=== PATIENT | female | born 1970 | race Caucasian/White ===

== ENCOUNTER → 2016-12-12 | Outpatient (CLI) | payer BC ==
[~2016-12-12] MED LIST: ACET-749; NIFE10CA20; PRENTAB26
--- NOTE | 2016-12-12 09:06 | DIAGNOSTIC IMAGING REPORT ---
CHEST 2 VIEWS ROUTINE CLINICAL HISTORY: Cutaneous sarcoidosis. COMPARISON STUDY: No previous studies for comparison. FINDINGS: Lung volumes are normal. There is no pneumothorax or pleural effusion. No consolidation is identified. Pulmonary vascularity is normal. Cardiac size is within normal limits. No hilar enlargement is identified. IMPRESSION: 1. No acute cardiopulmonary findings. 2. No radiographic evidence of pulmonary sarcoidosis. Electronically signed by: Nelson Pinto M.D. 12/12/2016 9:05 AM Dictated Date/Time: 12/12/2016 9:03 AM
== END | disposition home or self-care (01) ==
LOC: C.RAD 08:25
PROVIDERS: ATTEND Dermatology
DX: D86.89 Sarcoidosis of other sites (principal)

== ENCOUNTER → 2017-01-25 | Outpatient (CLI) | payer BC ==
--- NOTE | 2017-01-25 13:10 | DIAGNOSTIC IMAGING REPORT ---
ABDOMEN COMPLETE (US) HISTORY: Nonalcoholic steatosis. R74.0 TECHNIQUE: Multiple real time sonographic images of the abdomen were obtained assessing elaine-scale appearance. FINDINGS: PANCREAS: The pancreas is partially obscured by bowel gas. The visualized portions of the pancreas are normal without focal lesion or pancreatic duct dilatation. LIVER: The liver demonstrates increased echogenicity with poor through transmission measuring up to 19.5 cm. There is no intrahepatic bile duct dilation, or contour nodularity. There is no ascites. There are 2 hypoechoic foci within the left hepatic lobe measuring up to 0.8 cm without internal vascularity are nonspecific. GALLBLADDER: The gallbladder is collapsed without cholelithiasis, wall thickening, or pericholecystic fluid. Negative sonographic Campuzano's sign. The common bile duct measures 0.7 cm. RIGHT KIDNEY: The right kidney measures 11.1 x 4.7 x 5.5 cm. The parenchymal echotexture and cortical thickness are normal. No nephrolithiasis or hydronephrosis. LEFT KIDNEY: The left kidney measures 11.7 x 5.1 x 6.1 cm. The parenchymal echotexture and cortical thickness are normal. No nephrolithiasis or hydronephrosis. SPLEEN: The spleen measures 13.4 cm and is normal in echotexture. No focal lesions are identified. VASCULATURE: The aorta and IVC appear unremarkable. Aorta measures up to 2.0 cm proximally, 1.9 cm at its midportion and 1.7 cm distally. IMPRESSION: 1. Fatty infiltration of the liver with two nonspecific hypoechoic foci of the left hepatic lobe measuring up to 0.8 cm. Attention at follow-up recommended. 2. No sonographic evidence of cholelithiasis or acute cholecystitis. 3. Mild splenomegaly. The above report was generated using voice recognition software. It may contain grammatical, syntax or spelling errors. Electronically signed by: Feliberto Hernandez M.D. 01/25/2017 1:08 PM Dictated Date/Time: 01/25/2017 12:57 PM
== END | disposition home or self-care (01) ==
LOC: C.ULTR 11:52
PROVIDERS: ATTEND Internal Medicine Gastroenterology
DX: R74.0 Nonspecific elevation of levels of transaminase and lactic acid dehydrogenase [LDH] (principal)

== ENCOUNTER 2018-09-19 10:22 | Inpatient (IN) ==
[2018-09-19] MEDS ORDERED: SODIUM CHLORIDE 0.9% 1000ML 1,000 ML IV ONE (10:49)
[2018-09-19] MEDS ORDERED: fentaNYL citrate 100 MCG/2 ML VIAL IV STA (10:49)
[2018-09-19] MEDS ORDERED: FAMOTIDINE 20MG/5ML IV PUSH IV STA (10:49)
--- NOTE | 2018-09-19 10:59 | Emergency Department Note ---
History of Present Illness General Chief complaint: Referred by Doctor Stated complaint: GALL BLADDER - SENT FROM [facility] Time Seen by Provider: 09/19/18 10:43 Source: patient Mode of arrival: ambulatory Limitations: no limitations History of Present Illness Location: abdomen Radiation: non-radiation Severity: moderate Pain Consistency: + intermittent Maximum Pain Intensity: 2 Quality: + sharp Relieved By: + none Exacerbated By: + eating Treatments prior to arrival: none This is a 48-year-old female who presents the emergency department today after having a HIDA scan performed in nuclear medicine earlier. Patient states she has had 2 "attacks", and became suspicious that her gallbladder may be the problem. She previously been seeing Dr. viviane parker of GI, however since he left the practice she has had a difficult time getting in with his replacement. States when she called the office last week after she had another subsequent attack, Dr. Diaz called in an order for her to have a HIDA study done. Patient has been n.p.o. since 1030 last night, and went to have the study done this morning. Patient states she began having pain during the study and was given a dose of morphine which made the pain worse. States that she was told by the tech there was no activity on her gallbladder at the 1 hour markus, they waited an additional 30 minutes, and then became concerned and sent her to the emergency room. Patient denies any other recent change in activity or recent illness. Patient states she does take medication for blood pressure, however however has no other long-standing medical issues. Patient denies any recent change in bowel movements, does feel nauseated with the pain however has not had any vomit ing. Denies any fevers or chills, chest pain, or trouble breathing. Home Medications Home Medications Medication Instructions Recorded Confirmed Type cholecalciferol (vitamin D3) 1,000 unit PO DAILY 09/19/18 09/19/18 History levonorgestrel [Mirena] 20 mcg INTRAUTERINE UD 09/19/18 09/19/18 History lisinopril-hydrochlorothiazide 1 tab PO DAILY 09/19/18 09/19/18 History loratadine [Claritin] 10 mg PO DAILY 09/19/18 09/19/18 History multivitamin 1 tab PO DAILY 09/19/18 09/19/18 History wheat dextrin [Benefiber Clear SF 1.5 g PO BID 09/19/18 09/19/18 History (dextrin)] Allergies Allergy/AdvReac Type Severity Reaction Status Date / Time procaine Allergy Unknown Verified 09/19/18 11:22 lidocaine Allergy Unknown Unverified 09/19/18 11:22 Past Med/Surg History Medical History IUD (intrauterine device) in place mirena BRYSON (nonalcoholic steatohepatitis) HTN (hypertension) Seasonal allergies GERD (gastroesophageal reflux disease) Surgical History Previous section History of ear, nose, and throat (ENT) surgery S/P ERCP Family History Grandmother (Maternal) Cholecystitis Mother T2DM (type 2 diabetes mellitus) Ovarian cancer Father Kidney malignancy Social History Preferred Language: Greek Communication Ability: Effective Automation/Controls Manager Required: No Beliefs That Will Affect Care: None marital status: Current Living Situation: Spouse Feels Safe at Home: Yes Safety Concerns: Feels Safe At This Time Smoking Status: Former smoker Hx Alcohol Use: Yes Hx Substance Use: No Review of Systems See HPI for pertinent positives & negatives. and A total of 10 systems reviewed and were otherwise negative Physical Exam Vital Signs Vital Signs - 24 hr 09/21/18 07:10 09/21/18 12:36 09/21/18 12:45 Temperature 36.8 C 36.1 C L Temperature Source Oral Temporal Artery Scan Pulse Rate [Apical] 68 58 L Pulse Rate [Finger] 53 L Pulse Rhythm [Apical] Regular Regular Pulse Rhythm [Finger] Pulse Strength [Finger] Respiratory Rate 16 15 12 Respiratory Effort / Characteristics Non-Labored Spontaneous Non-Labored Spontaneous Respiratory Depth Normal Normal Respiratory Pattern Regular Regular Blood Pressure [Left Arm] 146/86 H 150/90 H 137/90 Blood Pressure Mean [Left Arm] 106 110 105 Blood Pressure Position [Left Arm] Lying Semi-fowlers Semi-fowlers Pulse Oximetry 98 100 99 Oxygen Delivery Method Room Air Oxymask Oxymask Oxygen Flow Rate 10 10 09/21/18 12:55 09/21/18 13:05 09/21/18 13:15 Temperature Temperature Source Pulse Rate [Apical] 50 L 52 L 50 L Pulse Rate [Finger] Pulse Rhythm [Apical] Regular Regular Regular Pulse Rhythm [Finger] Pulse Strength [Finger] Respiratory Rate 12 12 12 Respiratory Effort / Characteristics Non-Labored Spontaneous Non-Labored Spontaneous Non-Labored Spontaneous Respiratory Depth Normal Normal Normal Respiratory Pattern Regular Regular Regular Blood Pressure [Left Arm] 148/84 H 152/94 H 127/90 Blood Pressure Mean [Left Arm] 105 113 102 Blood Pressure Position [Left Arm] Semi-fowlers Semi-fowlers Semi-fowlers Pulse Oximetry 99 97 94 Oxygen Delivery Method Oxymask Nasal Cannula Nasal Cannula Oxygen Flow Rate 10 2 2 09/21/18 13:25 09/21/18 13:35 09/21/18 14:23 Temperature 36.2 C L Temperature Source Temporal Artery Scan Pulse Rate [Apical] 49 L 51 L Pulse Rate [Finger] 61 Pulse Rhythm [Apical] Regular Regular Pulse Rhythm [Finger] Pulse Strength [Finger] Respiratory Rate 13 16 20 Respiratory Effort / Characteristics Non-Labored Spontaneous Non-Labored Spontaneous Respiratory Depth Normal Normal Respiratory Pattern Regular Regular Blood Pressure [Left Arm] 136/78 132/92 144/95 H Blood Pressure Mean [Left Arm] 97 105 111 Blood Pressure Position [Left Arm] Semi-fowlers Semi-fowlers Lying Pulse Oximetry 95 94 96 Oxygen Delivery Method Nasal Cannula Nasal Cannula Nasal Cannula Oxygen Flow Rate 2 2 2 09/21/18 14:53 09/21/18 16:09 09/21/18 17:08 Temperature 36.7 C 36.7 C 36.7 C Temperature Source Oral Oral Oral Pulse Rate [Apical] 51 L Pulse Rate [Finger] 66 50 L Pulse Rhythm [Apical] Pulse Rhythm [Finger] Regular Regular Pulse Strength [Finger] Normal Normal Respiratory Rate 16 18 18 Respiratory Effort / Characteristics Non-Labored Non-Labored Respiratory Depth Normal Normal Respiratory Pattern Regular Regular Blood Pressure [Left Arm] 143/91 H 152/92 H 157/99 H Blood Pressure Mean [Left Arm] 108 112 118 Blood Pressure Position [Left Arm] Lying Lying Lying Pulse Oximetry 96 98 98 Oxygen Delivery Method Nasal Cannula Nasal Cannula Nasal Cannula Oxygen Flow Rate 2 2 2 09/21/18 20:03 09/21/18 20:20 09/21/18 23:01 Temperature 37.0 C 36.9 C Temperature Source Oral Oral Pulse Rate [Apical] Pulse Rate [Finger] 80 78 Pulse Rhythm [Apical] Pulse Rhythm [Finger] Regular Pulse Strength [Finger] Normal Respiratory Rate 20 18 Respiratory Effort / Characteristics Non-Labored Non-Labored Spontaneous Respiratory Depth Normal Normal Respiratory Pattern Regular Regular Blood Pressure [Left Arm] 155/84 H 149/81 H Blood Pressure Mean [Left Arm] 107 103 Blood Pressure Position [Left Arm] Lying Lying Pulse Oximetry 97 98 Oxygen Delivery Method Room Air Room Air Room Air Oxygen Flow Rate GENERAL: alert, well appearing, well nourished, no distress, non-toxic EYE EXAM: normal conjunctiva, PERRL and EOM's grossly intact OROPHARYNX: no exudate, no erythema, lips, buccal mucosa, and tongue normal and mucous membranes are moist NECK: supple, no nuchal rigidity, no adenopathy, non-tender LUNGS: Clear to auscultation. Normal chest wall mechanics, no w/r/r HEART: no murmurs, S1 normal and S2 normal ABDOMEN: abdomen soft, non-tender, normo-active bowel sounds, no masses, no rebound or guarding. BACK: Back is symmetrical on inspection and there is no deformity, no midline tenderness, no CVA tenderness. SKIN: no rashes and no bruising UPPER EXTREMITIES: upper extremities are grossly normal. FROM, nml pulses b/l. LOWER EXTREMITIES: No pitting edema. FROM, nml pulses b/l. NEURO EXAM: Normal sensorium, cranial nerves II-XII [grossly] intact, normal speech, no gross weakness of arms, no gross weakness of legs. Gross sensation intact. Course 1040: The patient was seen and evaluated in room C1A. A complete history and physical was obtained. \\ 1229: I updated the patient. NO pain on exam. I explained test results. 1352: I discussed with Nitza Tirado - General Surgery WILLIAN. 1443: I discussed with Nitza again, she suggests admitting to medicine and GI consult for concern of choledocolithiasis. 1449: I discussed with Julia Proctor [facility] Hospitalist WILLIAN. She will evaluate for further treatment. Administered Medications Lactated Ringer's (Lr) 1,000 mls @ 100 mls/hr IV .Q10H IMANI Stop: 10/19/18 16:19 Last Admin: 09/21/18 17:31 Dose: 100 mls/hr Documented by: [id number] Admin: 09/21/18 17:10 Dose: Not Given Documented by: [id number] Infusion: 09/21/18 09:30 Dose: 100 mls/hr Documented by: [id number] Admin: 09/20/18 22:30 Dose: 100 mls/hr Documented by: [id number] Infusion: 09/20/18 22:21 Dose: 100 mls/hr Documented by: [id number] Admin: 09/20/18 12:21 Dose: 100 mls/hr Documented by: [id number] Infusion: 09/20/18 12:21 Dose: 100 mls/hr Documented by: [id number] Admin: 09/20/18 06:00 Dose: 100 mls/hr Documented by: [id number] Infusion: 09/20/18 06:00 Dose: 100 mls/hr Documented by: [id number] Admin: 09/19/18 21:19 Dose: 100 mls/hr Documented by: [id number] Piperacillin Sod/Tazobactam (Sod 3.375 gm/ Dextrose) 115 mls @ 28.75 mls/hr IV Q8H IMANI; Protocol Stop: 09/22/18 14:01 Last Admin: 09/22/18 01:52 Dose: 28.8 mls/hr Documented by: [id number] Infusion: 09/21/18 21:31 Dose: 0 mls/hr Documented by: [id number] Admin: 09/21/18 17:31 Dose: 28.8 mls/hr Documented by: [id number] Admin: 09/21/18 03:52 Dose: 28.8 mls/hr Documented by: [id number] Infusion: 09/20/18 22:30 Dose: 0 mls/hr Documented by: [id number] Admin: 09/20/18 17:51 Dose: 28.8 mls/hr Documented by: [id number] Infusion: 09/20/18 13:16 Dose: 0 mls/hr Documented by: [id number] Admin: 09/20/18 09:16 Dose: 28.8 mls/hr Documented by: [id number] Infusion: 09/20/18 06:02 Dose: 0 mls/hr Documented by: [id number] Admin: 09/20/18 02:02 Dose: 28.8 mls/hr Documented by: [id number] Miscellaneous (Check Scopolamine Patch Placement) 1 ea N/A QS IMANI Stop: 10/20/18 00:00 Last Admin: 09/21/18 23:35 Dose: 1 ea Documented by: [id number] Admin: 09/21/18 16:28 Dose: 1 ea Documented by: [id number] Admin: 09/21/18 16:28 Dose: 1 ea Documented by: [id number] Admin: 09/20/18 23:15 Dose: 1 ea Documented by: [id number] Admin: 09/20/18 17:04 Dose: 1 ea Documented by: [id number] Admin: 09/20/18 07:24 Dose: 1 ea Documented by: [id number] Admin: 09/19/18 23:46 Dose: 1 ea Documented by: [id number] Psyllium Hydrophilic Mucilloid (Metamucil) 1 pkt PO BID IMANI Stop: 10/21/18 20:59 Last Admin: 09/21/18 20:40 Dose: 1 pkt Documented by: [id number] Vitamin D (Vitamin D3) 1,000 units PO DAILY IMANI Stop: 10/20/18 08:59 Last Admin: 09/21/18 16:27 Dose: 1,000 units Documented by: [id number] Admin: 09/20/18 07:24 Dose: 1,000 units Documented by: [id number] Discontinued Medications Bacitracin (Bacitracin) Confirm Administered Dose 45 appln .ROUTE .STK-MED ONE Stop: 09/21/18 09:51 Last Admin: 09/21/18 12:03 Dose: 45 appln Documented by: [id number] Bupivacaine HCl (Marcaine 0.5% Mpf) Confirm Administered Dose 30 ml .ROUTE .STK- MED ONE Stop: 09/21/18 09:52 Last Admin: 09/21/18 12:03 Dose: 24 ml Documented by: [id number] Famotidine (Pepcid 20mg Iv Push) 20 mg IV ONE STA Stop: 09/19/18 10:50 Last Admin: 09/19/18 11:10 Dose: 20 mg Documented by: [id number] Fentanyl Citrate (Fentanyl Citrate) 100 mcg IV NOW STA Stop: 09/19/18 10:50 Last Admin: 09/19/18 11:09 Dose: 100 mcg Documented by: [id number] Sodium Chloride (Nss 1000ml) 1,000 mls @ 999 mls/hr IV .Q1H1M ONE Stop: 09/19/18 11:49 Last Infusion: 09/19/18 12:11 Dose: 0 mls/hr Documented by: [id number] Admin: 09/19/18 11:09 Dose: 999 mls/hr Documented by: [id number] Piperacillin Sod/Tazobactam (Sod 4.5 gm/ Dextrose) 120 mls @ 200 mls/hr IV TO DAY@1700 ONE; Protocol Stop: 09/19/18 17:35 Last Infusion: 09/19/18 21:26 Dose: 0 mls/hr Documented by: [id number] Admin: 09/19/18 20:16 Dose: 200 mls/hr Documented by: [id number] Ciprofloxacin (Cipro) 400 mg in 200 mls @ 100 mls/hr IV PREOP IMANI Stop: 09/19/18 19:44 Last Infusion: 09/19/18 20:23 Dose: 0 mls/hr Documented by: [id number] Admin: 09/19/18 17:45 Dose: 100 mls/hr Documented by: [id number] Lactated Ringer's (Lr) 1,000 mls @ 15 mls/hr IV .Q24H [facility] Stop: 09/20/18 02:00 Last Admin: 09/19/18 19:33 Dose: Not Given Documented by: [id number] Cefazolin Sodium (Ancef 2000mg) 2,000 mg in 15 mls @ 3.75 mls/min IV PREOP@1000 IMANI; Protocol Stop: 09/21/18 18:00 Last Admin: 09/21/18 23:14 Dose: Not Given Documented by: [id number] Indomethacin (Indocin) Confirm Administered Dose 100 mg DE .STK-MED ONE Stop: 09/19/18 17:20 Last Admin: 09/19/18 17:36 Dose: 100 mg Documented by: [id number] Labetalol HCl (Normodyne) 5 mg IV Q5M PRN PRN Reason: PACU Use-SBP>160 or DBP>100 Stop: 09/19/18 22:06 Last Admin: 09/19/18 18:59 Dose: 5 mg Documented by: [id number] Cosigned by: [id number] Lisinopril (Zestril) 20 mg PO QAM [facility] Stop: 10/20/18 08:59 Last Admin: 09/20/18 07:24 Dose: 20 mg Documented by: [id number] Menthol (Nice) Confirm Administered Dose 24 santy BUCCAL .STK-MED ONE Stop: 09/20/18 15:12 Last Admin: 09/20/18 16:27 Dose: 24 santy Documented by: [id number] Scopolamine (Transderm-Scop) Confirm Administered Dose 1.5 mg .ROUTE .STK-MED ONE Stop: 09/19/18 17:12 Last Admin: 09/19/18 17:13 Dose: 1.5 mg Documented by: [id number] Scopolamine (Transderm-Scop) 1.5 mg TD ONE ONE Stop: 09/19/18 17:23 Last Admin: 09/19/18 19:34 Dose: Not Given Documented by: [id number] Medical Decision Making Differential Diagnosis Differential diagnoses includes but is not limited to gastritis, peptic ulcer disease, GERD, gallbladder disease, pancreatitis, small bowel obstruction, acute coronary syndrome, pericarditis, ischemic bowel, irritable bowel disease, irritable bowel syndrome, appendicitis, diverticulitis, malignancy, hernia, urinary tract infection, torsion, [/ectopic (if female)], perforation, trauma, infectious. Medical Records Attestation: I reviewed the patient's medical records. Home Medications Current Medication List: was personally reviewed by me Laboratory Data Attestation: I reviewed the patient's lab results. Result diagrams: 09/21/18 05:41 09/21/18 05:41 Lab Results 09/19/18 09/19/18 09/19/18 Range/Units 11:05 11:05 11:05 WBC 4.46 L (4.8-10.8) K/uL RBC 4.78 (4.2-5.4) M/uL Hgb 14.7 (12.0-16.0) g/dL Hct 42.2 (37-47) % MCV 88.3 (80-100) fL MCH 30.8 (25-34) pg MCHC 34.8 (32-36) g/dL RDW Std Deviation 40.0 (36.4-46.3) fL RDW Coeff of Kecia 12.5 (11.5-14.5) % Plt Count 211 (130-400) K/uL MPV 9.8 (7.4-10.4) fL Immature Gran % (Auto) 0.4 % Neut % (Auto) 62.2 % Lymph % (Auto) 22.6 % [place] % (Auto) 10.3 % Eos % (Auto) 3.6 % Baso % (Auto) 0.9 % Immature Gran # (Auto) 0.02 (0.00-0.02) K/uL Neut # (Auto) 2.77 (1.4-6.5) K/uL Lymph # (Auto) 1.01 L (1.2-3.4) K/uL [place] # (Auto) 0.46 (0.11-0.59) K/uL Eos # (Auto) 0.16 (0-0.5) K/uL Baso # (Auto) 0.04 (0-0.2) K/uL PT 10.5 (9.0-12.0) Seconds INR 1.0 (0.9-1.1) Sodium 140 (136-145) mmol/L Potassium 3.8 (3.5-5.1) mmol/L Chloride 108 H (98-107) mmol/L Carbon Dioxide 27 (21-32) mmol/L Anion Gap 5.0 (3-11) BUN 15 (7-18) mg/dl Creatinine 0.65 (0.6-1.2) mg/dl Est Cr Clr Drug Dosing 117.6 ml/min Est GFR ( Amer) 123.4 Est GFR (Non-Af Amer) 106.5 BUN/Creatinine Ratio 22.8 H (10-20) Glucose 82 (70-99) mg/dl Calcium 8.5 (8.5-10.1) mg/dl Magnesium 2.3 (1.8-2.4) mg/dl Total Bilirubin 0.5 (0.2-1) mg/dl AST 35 (15-37) U/L ALT 69 (12-78) U/L Alkaline Phosphatase 71 (45-117) U/L Troponin I < 0.015 (0-0.045) ng/ml Total Protein 7.0 (6.4-8.2) gm/dl Albumin 3.4 (3.4-5.0) gm/dl Globulin 3.6 (2.5-4.0) gm/dl Albumin/Globulin Ratio 0.9 (0.9-2) Lipase 159 (73-393) U/L HCG, Qual (Negative) 09/19/18 09/20/18 09/20/18 Range/Units 11:05 06:12 06:12 WBC 5.48 (4.8-10.8) K/uL RBC 4.60 (4.2-5.4) M/uL Hgb 13.9 (12.0-16.0) g/dL Hct 40.5 (37-47) % MCV 88.0 (80-100) fL MCH 30.2 (25-34) pg MCHC 34.3 (32-36) g/dL RDW Std Deviation 39.3 (36.4-46.3) fL RDW Coeff of Kecia 12.3 (11.5-14.5) % Plt Count 215 (130-400) K/uL MPV 10.2 (7.4-10.4) fL Immature Gran % (Auto) 0.4 % Neut % (Auto) 87.2 % Lymph % (Auto) 10.9 % [place] % (Auto) 1.5 % Eos % (Auto) 0.0 % Baso % (Auto) 0.0 % Immature Gran # (Auto) 0.02 (0.00-0.02) K/uL Neut # (Auto) 4.78 (1.4-6.5) K/uL Lymph # (Auto) 0.60 L (1.2-3.4) K/uL [place] # (Auto) 0.08 L (0.11-0.59) K/uL Eos # (Auto) 0.00 (0-0.5) K/uL Baso # (Auto) 0.00 (0-0.2) K/uL PT (9.0-12.0) Seconds INR (0.9-1.1) Sodium 140 (136-145) mmol/L Potassium 4.0 (3.5-5.1) mmol/L Chloride 107 (98-107) mmol/L Carbon Dioxide 26 (21-32) mmol/L Anion Gap 7.0 (3-11) BUN 14 (7-18) mg/dl Creatinine 0.89 (0.6-1.2) mg/dl Est Cr Clr Drug Dosing 85.2 ml/min Est GFR ( Amer) 90.1 Est GFR (Non-Af Amer) 77.7 BUN/Creatinine Ratio 15.3 (10-20) Glucose 138 H (70-99) mg/dl Calcium 8.4 L (8.5-10.1) mg/dl Magnesium (1.8-2.4) mg/dl Total Bilirubin 0.6 (0.2-1) mg/dl AST 26 (15-37) U/L ALT 64 (12-78) U/L Alkaline Phosphatase 63 (45-117) U/L Troponin I (0-0.045) ng/ml Total Protein 6.7 (6.4-8.2) gm/dl Albumin 3.1 L (3.4-5.0) gm/dl Globulin 3.6 (2.5-4.0) gm/dl Albumin/Globulin Ratio 0.9 (0.9-2) Lipase 210 (73-393) U/L HCG, Qual Negative (Negative) 09/21/18 09/21/18 Range/Units 05:41 05:41 WBC 6.10 (4.8-10.8) K/uL RBC 4.29 (4.2-5.4) M/uL Hgb 13.0 (12.0-16.0) g/dL Hct 38.3 (37-47) % MCV 89.3 (80-100) fL MCH 30.3 (25-34) pg MCHC 33.9 (32-36) g/dL RDW Std Deviation 39.8 (36.4-46.3) fL RDW Coeff of Kecia 12.6 (11.5-14.5) % Plt Count 188 (130-400) K/uL MPV 9.9 (7.4-10.4) fL Immature Gran % (Auto) % Neut % (Auto) % Lymph % (Auto) % [place] % (Auto) % Eos % (Auto) % Baso % (Auto) % Immature Gran # (Auto) (0.00-0.02) K/uL Neut # (Auto) (1.4-6.5) K/uL Lymph # (Auto) (1.2-3.4) K/uL [place] # (Auto) (0.11-0.59) K/uL Eos # (Auto) (0-0.5) K/uL Baso # (Auto) (0-0.2) K/uL PT (9.0-12.0) Seconds INR (0.9-1.1) Sodium 142 (136-145) mmol/L Potassium 3.7 (3.5-5.1) mmol/L Chloride 108 H (98-107) mmol/L Carbon Dioxide 29 (21-32) mmol/L Anion Gap 5.0 (3-11) BUN 11 (7-18) mg/dl Creatinine 0.87 (0.6-1.2) mg/dl Est Cr Clr Drug Dosing 87.2 ml/min Est GFR ( Amer) 92.6 Est GFR (Non-Af Amer) 79.9 BUN/Creatinine Ratio 12.8 (10-20) Glucose 106 H (70-99) mg/dl Calcium 8.3 L (8.5-10.1) mg/dl Magnesium (1.8-2.4) mg/dl Total Bilirubin 0.7 (0.2-1) mg/dl AST 29 (15-37) U/L ALT 65 (12-78) U/L Alkaline Phosphatase 58 (45-117) U/L Troponin I (0-0.045) ng/ml Total Protein 6.4 (6.4-8.2) gm/dl Albumin 3.2 L (3.4-5.0) gm/dl Globulin 3.2 (2.5-4.0) gm/dl Albumin/Globulin Ratio 1.0 (0.9-2) Lipase (73-393) U/L HCG, Qual (Negative) Imaging Data Attestation: I personally reviewed and interpreted this imaging study as follows: Radiologist's Impression: US abdomen limited CLINICAL HISTORY: 48 years-old Female presenting with gb stone hx, abn hida. TECHNIQUE: Real-time grayscale and limited color Doppler ultrasound imaging of the abdomen limited to the right upper quadrant was performed. COMPARISON: . FINDINGS: Pancreas: Visualized portions of the pancreatic head and body normal. Prominent pancreatic duct measuring 3-4 mm at the level of the pancreatic neck. Liver: Moderately hyperechogenic parenchyma with partial obscuration of the right hemidiaphragm, likely indicating moderate steatosis. The liver measures 16.6 cm in maximal sagittal dimension. Subcentimeter anechoic lesions likely hepatic cysts or hamartomas. Main portal vein patent with normal directional flow. Biliary: No intrahepatic biliary ductal dilatation. Common bile duct measures up to 10 mm in diameter. Hyperechogenic shadowing focus consistent with choledocholithiasis in the proximal to midportion of the common duct. Gallbladder: Gallstones in the mildly distended gallbladder. Posterior shadowing resulting from the calculi limited by rotation of the posterior wall. Gall bladder wall thickening measures up to 5 mm. Sonographic Campuzano's sign negative. However, the patient has recently received morphine. Right kidney: Normal in appearance without evidence of hydronephrosis. Ascites: None. Other: None. IMPRESSION: 1. Cholelithiasis with findings suspicious for calculus cholecystitis. The negative Campuzano's sign is felt to not be reliable given the recent adminis tration of morphine. Surgical consultation is advised. 2. Choledocholithiasis with extrahepatic biliary ductal dilatation. 3. Pancreatic ductal prominence raises concern for a distal common bile duct calculus at the ampulla of Vater. 4. Hepatic steatosis. Correlate with liver function tests to exclude steatohepatitis as a cause for abdominal pain. Electronically signed by: Chintan Montelongo M.D. 09/19/2018 1:25 PM XR chest 1V portable HISTORY: 48 years-old Female epigastric pain acute atypical chest pain with epigastric abdominal pain COMPARISON: Chest radiographs 12/12/2016 TECHNIQUE: Portable AP view of the chest FINDINGS: There is mild asymmetric right hilar prominence which appears unchanged. Cardiac silhouette is upper limits of normal in size. There is no pneumothorax, pleural effusion, focal airspace consolidation or overt pulmonary edema. Mild right hemidiaphragmatic elevation. The bones of the chest appear grossly intact. IMPRESSION: No acute process. The above report was generated using voice recognition software. It may contain grammatical, syntax or spelling errors. Electronically signed by: Feliberto Hernandez M.D. 09/19/2018 11:05 AM ECG Data Attestation: I personally reviewed and interpreted this ECG as follows: Indication: abdominal pain Rate (beats per minute): 63 Rhythm: normal sinus Findings: no ST depression and no ST elevation Blood Pressure Blood Pressure Findings: Elevated blood pressure Blood Pressure Disposition: elevated BP felt to be situational MDM Narrative Pt here well appearing, afebrile, no n/v, but with epigastric pain and an abnormal outpt HIDA. Pt with HIDA and US GB here suggestive of cholecystitis despite normal labs. Consulted surgery who saw pt at bedside and due to concern for possible choledocholithiasis, suggested medicine admission with GI consult in addition. I discussed the case with medicine and placed MRCP order after this discussion, they will see/evaluate the patient and consult GI. VS stable throughout. I do not suspect ascending cholangitis, bacteremia/sepsis. No evidence of perforation, GI bleed, sbo. Impression & Plan Choledocholithiasis, Acute cholecystitis Discharge Plan Visit Data *Final* Discharge Date/Time: 09/19/18 16:29 Chief Complaint: Referred by Doctor Stated Complaint: GALL BLADDER - SENT FROM [facility] ED Provider: Shelly Doherty Discharge Problem: Choledocholithiasis, Acute cholecystitis Patient Disposition: Admitted As Inpatient Discharge Instructions Interventions: ED Discharge Assessment Last Done: 09/19/18 16:29
--- NOTE | 2018-09-19 11:06 | XRay Report ---
XR chest 1V portable HISTORY: 48 years-old Female epigastric pain acute atypical chest pain with epigastric abdominal pa in COMPARISON: Chest radiographs 12/12/2016 TECHNIQUE: Portable AP view of the chest FINDINGS: There is mild asymmetric right hilar prominence which appears unchanged. Cardiac silhouette is upper limits of normal in size. There is no pneumothorax, pleural effusion, focal airspace consolidation or overt pulmonary edema. Mild right hemidiaphragmatic elevation. The bones of the chest appear grossly intact. IMPRESSION: No acute process. The above report was generated using voice recognition software. It may contain grammatical, syntax o r spelling errors. Electronically signed by: Feliberto Hernandez M.D. 09/19/2018 11:05 AM
[2018-09-19 11:16] LABS: Basophils # (auto) 0.04 K/uL (0-0.2); Basophils % (auto) 0.9 %; Eosinophils # (auto) 0.16 K/uL (0-0.5); Eosinophils % (auto) 3.6 %; Hematocrit (blood only) 42.2 % (37-47); Hemoglobin 14.7 g/dL (12.0-16.0); Immature Granulocytes # (auto) 0.02 K/uL (0.00-0.02); Immature Granulocytes % (auto) 0.4 %; Lymphocytes # (auto) 1.01 K/uL (1.2-3.4); Lymphocytes % (auto) 22.6 %; Mean Corpuscular Hgb Conc 34.8 g/dL (32-36); Mean Corpuscular Volume 88.3 fL (80-100); Mean Platelet Volume 9.8 fL (7.4-10.4); Monocytes # (auto) 0.46 K/uL (0.11-0.59); Monocytes % (auto) 10.3 %; Neutrophils # (auto) 2.77 K/uL (1.4-6.5); Neutrophils % (auto) 62.2 %; Platelet Count 211 K/uL (130-400); RDW Coefficient of Variation 12.5 % (11.5-14.5); Red Blood Count 4.78 M/uL (4.2-5.4); White Blood Count 4.46 K/uL (4.8-10.8)
[2018-09-19 11:30] LABS: Alanine Aminotransferase 69 U/L (12-78); Albumin Level 3.4 gm/dl (3.4-5.0); Aspartate Aminotransferase 35 U/L (15-37); BUN Creatinine Ratio 22.8 (10-20); Blood Urea Nitrogen 15 mg/dl (7-18); Calcium 8.5 mg/dl (8.5-10.1); Carbon Dioxide 27 mmol/L (21-32); Chloride 108 mmol/L (98-107); Creatinine Clr Calc Pharmacy 117.6 ml/min; Est GFR (African American) 123.4; Est GFR (Non-African American) 106.5; Glucose 82 mg/dl (70-99); Magnesium 2.3 mg/dl (1.8-2.4); Potassium 3.8 mmol/L (3.5-5.1); Sodium 140 mmol/L (136-145)
[2018-09-19 11:31] LABS: Prothrombin Time 10.5 Seconds (9.0-12.0)
[2018-09-19 11:35] LABS: Albumin Globulin Ratio 0.9 (0.9-2); Alkaline Phosphatase 71 U/L (45-117); Bilirubin,Total 0.5 mg/dl (0.2-1); Globulin 3.6 gm/dl (2.5-4.0); Troponin I < 0.015 ng/ml (0-0.045)
[2018-09-19 11:40] LABS: Pregnancy Test, Serum Negative (Negative)
--- NOTE | 2018-09-19 13:26 | Ultrasound Report ---
US abdomen limited CLINICAL HISTORY: 48 years-old Female presenting with gb stone hx, abn hida. TECHNIQUE: Real-time grayscale and limited color Doppler ultrasound imaging of the abdomen limited to the right upper quadrant was performed. COMPARISON: . FINDINGS: Pancreas: Visualized portions of the pancreatic head and body normal. Prominent pancreatic duct measu ring 3-4 mm at the level of the pancreatic neck. Liver: Moderately hyperechogenic parenchyma with partial obscuration of the right hemidiaphragm, like ly indicating moderate steatosis. The liver measures 16.6 cm in maximal sagittal dimension. Subcentim eter anechoic lesions likely hepatic cysts or hamartomas. Main portal vein patent with normal directi onal flow. Biliary: No intrahepatic biliary ductal dilatation. Common bile duct measures up to 10 mm in diameter . Hyperechogenic shadowing focus consistent with choledocholithiasis in the proximal to midportion of the common duct. Gallbladder: Gallstones in the mildly distended gallbladder. Posterior shadowing resulting from the c alculi limited by rotation of the posterior wall. Gallbladder wall thickening measures up to 5 mm. So nographic Campuzano's sign negative. However, the patient has recently received morphine. Right kidney: Normal in appearance without evidence of hydronephrosis. Ascites: None. Other: None. IMPRESSION: 1. Cholelithiasis with findings suspicious for calculus cholecystitis. The negative Campuzano's sign is felt to not be reliable given the recent administration of morphine. Surgical consultation is advise d. 2. Choledocholithiasis with extrahepatic biliary ductal dilatation. 3. Pancreatic ductal prominence raises concern for a distal common bile duct calculus at the ampulla of Vater. 4. Hepatic steatosis. Correlate with liver function tests to exclude steatohepatitis as a cause for abdominal pain. Electronically signed by: Chintan Montelongo M.D. 09/19/2018 1:25 PM
--- NOTE | 2018-09-19 14:46 | Surgery Consultation ---
Date of Consultation September 19, 2018 Assessment & Plan (1) Acute calculous cholecystitis: 48 year-old female who was having outpatient HIDA scan today for gallbladder evaluation in the setting of two previous episodes of "gallbladder attacks" with abdominal pain, nausea, vomiting, and bloating. HIDA showed evidence of acute cholecystitis with nonvisualization of the gallbladder after 90 minutes and Morhpine administration. Emergency room work-up included labs which were completely unremarkable including cbc, bmp, LFTs, t. bili, and lipase. Abdominal ultrasound however shows dilated CBD at 10 mm (5 mm previously) with shadowing focus in the mid common bile duct consistent with choledochlithiasis as well as prominence of the pancreatic duct at the pancreatic neck. Abdomen is soft, nondistended, tender in the RUQ on deep palpation. Negative Campuzano's sign but given IV pain medication in ER. Hemodynamically stable, afebrile Plan: Discussed with patient that her two imaging studies and her labs are discordant with one another. There is concern for possible choledocholithiasis on today's ultrasound with dilated CBD at 10 mm (5 mm on previous US in June). Therefore given these findings, would recommend further evaluation of the biliary system with MRCP prior to cholecystectomy. Discussed she may need ERCP prior to cholecystectomy depending on further studies. Would recommend hospitalist admission with GI consult and MRCP for further evaluation Recommend IV abx for cholecystitis IV fluids and pain management as needed Repeat am labs including cbc, bmp, LFTs, and lipase NPO after midnight if diet advanced later this evening If further work-up negative possible cholecystectomy tomorrow with Dr. Potts. I reviewed pt's H/P with pt, Plan, I recommend to do laparosocpic cholecystectomy, possible open, on 10AM 09/21/2018, D/W benefits, risks and alternatives of the surgery, the risks - infection, bleeding, injury CBD, bowel, DVT, , pt understood, she agrees with the surgery, I answered all questions, NPO after MN on 09/20/2018 (2) Choledocholithiasis: Ultrasound showing dilated CBD at 10 mm with shadowing focus Prominence of pancreatic duct concerning for distal CBD stone?? HIDA scan however showed radiotracer uptake in small bowel Plan as above Discussed patient with Dr. Potts who agrees with above History of Present Illness Reason for Consultation: Cholelithiasis, Epigastric/RUQ abdominal pain, abnormal outpatient HIDA scan Requesting Physician: Shelly Doherty MD History of Present Illness Araceli is a very pleasant 48 year-old female who was having outpatient HIDA scan today in which she was told to go to emergency room as the gallbladder was not visualized after 1 hour and after morphine administration consistent with acute cholecystitis. Araceli states goes back to June 14 she had her first attach in which she had epigastric/RUQ abdominal pain with severe nausea and vomiting. States she was unable to eat or drink anything for 1 day during that attack. States she did fine up until last week when she had another attack. Again same symptoms with epigastric pain radiation to her RUQ and straight through her back with nausea and vomiting. She states she has noticed abdominal bloating and intolerance to onions in the past few months. States she never had any issues with her gallbladder prior to June 14 attack. Denies of any fever, chills, sweats, nausea, vomiting, vomiting blood, diarrhea, constipation, blood in stools, melena, acholic stools, generalized itching, jaundice. Has family history of gallbladder problems (Maternal grandmother). Had a section in 2005, no other abdominal surgeries. Her outpatient imaging has included an abdominal ultrasound in June which showed gallstones however no signs of acute cholecystitis and CBD measured 5 mm. HIDA scan today showed nonvisualization of gallbladder at 90 minutes even after morphine administration consistent with acute cholecystitis however there was radiotracer uptake into the small intestine. Abdominal Ultrasound today (09/19/2018) showed gallstones, gallbladder wall thickening at 5 mm , dilated CBD at 10 mm with shadowing focus of the mid common bile duct consistent with choledocholithiasis as well as prominence of the pancreatic duct concerning for distal common bile duct at ampulla of vater. Her labs are completely within normal limits including CBC, t. bili, LFTs, and lipase. Vitals are stable and she is afebrile. Allergies Allergy/AdvReac Type Severity Reaction Status Date / Time procaine Allergy Unknown Verified 09/19/18 11:22 lidocaine Allergy Unknown Unverified 09/19/18 11:22 Home Medications Home Medications Medication Instructions Recorded Confirmed Type cholecalciferol (vitamin D3) 1,000 unit PO DAILY 09/19/18 09/19/18 History levonorgestrel [Mirena] 20 mcg INTRAUTERINE UD 09/19/18 09/19/18 History lisinopril-hydrochlorothiazide 1 tab PO DAILY 09/19/18 09/19/18 History loratadine [Claritin] 10 mg PO DAILY 09/19/18 09/19/18 History multivitamin 1 tab PO DAILY 09/19/18 09/19/18 History wheat dextrin [Benefiber Clear SF 1.5 g PO BID 09/19/18 09/19/18 History (dextrin)] Patient History Medical History IUD (intrauterine device) in place mirena BRYSON (nonalcoholic steatohepatitis) HTN (hypertension) Seasonal allergies GERD (gastroesophageal reflux disease) Surgical History Previous section History of ear, nose, and throat (ENT) surgery Family History Grandmother (Maternal) Cholecystitis Mother T2DM (type 2 diabetes mellitus) Ovarian cancer Father Kidney malignancy Social History Preferred Language: [place] Communication Ability: Effective Form Setter/Driver Required: No Beliefs That Will Affect Care: None marital status: Current Living Situation: Spouse Feels Safe at Home: Yes Safety Concerns: Feels Safe At This Time Smoking Status: Former smoker Hx Alcohol Use: Yes Hx Substance Use: No Review of Systems Constitutional: no fever, no chills and no sweats Respiratory: no cough, no dyspnea and no dyspnea on exertion Cardiovascular: no chest pain and no palpitations Gastrointestinal: + abdominal pain and + bloating; no belching, no nausea, no vomiting, no coffee ground emesis, no hematemesis, no change in stools, no constipation, no diarrhea/loose stools, no blood in stools and no melena Physical Exam Vital Signs (Past 24 Hours): Last Vital Signs Temp 36.8 C 09/19/18 10:36 Pulse 69 09/19/18 14:08 Resp 17 09/19/18 14:08 BP 152/95 H 09/19/18 14:08 Pulse Ox 98 09/19/18 14:08 Constitutional: WD/WN, vitals as above no acute distress and not ill appearing Neck: trachea midline Respiratory: normal respiratory effort, lungs clear to auscultation Cardiovascular: RRR, no murmur, no edema Gastrointestinal (Abdomen): Inspection/Auscultation: abdomen normal to inspection; abdomen not distended Percussion/Palpation: + abdomen tender (epigastric and RUQ on deep palpation, negative Campuzano's sign), + guarding and abdomen soft; abdomen not rigid Skin: no rashes, warm and dry no jaundice Psychiatric: A+Ox3, euthymic affect Results & Data Laboratory Results 09/19/18 09/19/18 09/19/18 Range/Units 11:05 11:05 11:05 WBC (4.8-10.8) K/uL RBC (4.2-5.4) M/uL Hgb (12.0-16.0) g/dL Hct (37-47) % MCV (80-100) fL MCH (25-34) pg MCHC (32-36) g/dL RDW Std Deviation (36.4-46.3) fL RDW Coeff of Kecia (11.5-14.5) % Plt Count (130-400) K/uL MPV (7.4-10.4) fL Immature Gran % (Auto) % Neut % (Auto) % Lymph % (Auto) % [place] % (Auto) % Eos % (Auto) % Baso % (Auto) % Immature Gran # (Auto) (0.00-0.02) K/uL Neut # (Auto) (1.4-6.5) K/uL Lymph # (Auto) (1.2-3.4) K/uL [place] # (Auto) (0.11-0.59) K/uL Eos # (Auto) (0-0.5) K/uL Baso # (Auto) (0-0.2) K/uL PT 10.5 (9.0-12.0) Seconds INR 1.0 (0.9-1.1) Sodium 140 (136-145) mmol/L Potassium 3.8 (3.5-5.1) mmol/L Chloride 108 H (98-107) mmol/L Carbon Dioxide 27 (21-32) mmol/L Anion Gap 5.0 (3-11) BUN 15 (7-18) mg/dl Creatinine 0.65 (0.6-1.2) mg/dl Est Cr Clr Drug Dosing 117.6 ml/min Est GFR ( Amer) 123.4 Est GFR (Non-Af Amer) 106.5 BUN/Creatinine Ratio 22.8 H (10-20) Glucose 82 (70-99) mg/dl Calcium 8.5 (8.5-10.1) mg/dl Magnesium 2.3 (1.8-2.4) mg/dl Total Bilirubin 0.5 (0.2-1) mg/dl AST 35 (15-37) U/L ALT 69 (12-78) U/L Alkaline Phosphatase 71 (45-117) U/L Troponin I < 0.015 (0-0.045) ng/ml Total Protein 7.0 (6.4-8.2) gm/dl Albumin 3.4 (3.4-5.0) gm/dl Globulin 3.6 (2.5-4.0) gm/dl Albumin/Globulin Ratio 0.9 (0.9-2) Lipase 159 (73-393) U/L HCG, Qual Negative (Negative) 09/19/18 Range/Units 11:05 WBC 4.46 L (4.8-10.8) K/uL RBC 4.78 (4.2-5.4) M/uL Hgb 14.7 (12.0-16.0) g/dL Hct 42.2 (37-47) % MCV 88.3 (80-100) fL MCH 30.8 (25-34) pg MCHC 34.8 (32-36) g/dL RDW Std Deviation 40.0 (36.4-46.3) fL RDW Coeff of Kecia 12.5 (11.5-14.5) % Plt Count 211 (130-400) K/uL MPV 9.8 (7.4-10.4) fL Immature Gran % (Auto) 0.4 % Neut % (Auto) 62.2 % Lymph % (Auto) 22.6 % [place] % (Auto) 10.3 % Eos % (Auto) 3.6 % Baso % (Auto) 0.9 % Immature Gran # (Auto) 0.02 (0.00-0.02) K/uL Neut # (Auto) 2.77 (1.4-6.5) K/uL Lymph # (Auto) 1.01 L (1.2-3.4) K/uL [place] # (Auto) 0.46 (0.11-0.59) K/uL Eos # (Auto) 0.16 (0-0.5) K/uL Baso # (Auto) 0.04 (0-0.2) K/uL PT (9.0-12.0) Seconds INR (0.9-1.1) Sodium (136-145) mmol/L Potassium (3.5-5.1) mmol/L Chloride (98-107) mmol/L Carbon Dioxide (21-32) mmol/L Anion Gap (3-11) BUN (7-18) mg/dl Creatinine (0.6-1.2) mg/dl Est Cr Clr Drug Dosing ml/min Est GFR ( Amer) Est GFR (Non-Af Amer) BUN/Creatinine Ratio (10-20) Glucose (70-99) mg/dl Calcium (8.5-10.1) mg/dl Magnesium (1.8-2.4) mg/dl Total Bilirubin (0.2-1) mg/dl AST (15-37) U/L ALT (12-78) U/L Alkaline Phosphatase (45-117) U/L Troponin I (0-0.045) ng/ml Total Protein (6.4-8.2) gm/dl Albumin (3.4-5.0) gm/dl Globulin (2.5-4.0) gm/dl Albumin/Globulin Ratio (0.9-2) Lipase (73-393) U/L HCG, Qual (Negative) Diagnostic Findings NM hepatobiliary wo pharm CLINICAL HISTORY: 48 years-old Female presenting with GALLSTONES, epigastric pain. TECHNIQUE: Immediately following the intravenous administration of 5.5 mCi Tc- 99m Choletec, dynamic anterior abdominal imaging was performed. 2 mg of IV morphine was administered at 60 minutes due to nondistention of the gallbladder with a patent common duct. COMPARISON: Ultrasound from 06/20/2018. FINDINGS: Uniform hepatic tracer accumulation is shown. Prompt intrahepatic biliary excretion is seen with visualization of the small bowel. Note made of reflux of radiotracer into the gastric lumen. Delayed visualization of the gallbladder requiring administration of morphine. The gallbladder was not confidently visual ized despite 30 minutes of imaging. Expected radiotracer activity within small bowel indicates an unobstructed common duct. IMPRESSION: 1. Nonvisualization of the gallbladder after 90 minutes despite morphine administration. Findings highly suspicious for acute cholecystitis. US abdomen limited CLINICAL HISTORY: 48 years-old Female presenting with gb stone hx, abn hida. TECHNIQUE: Real-time grayscale and limited color Doppler ultrasound imaging of the abdomen limited to the right upper quadrant was performed. COMPARISON: . FINDINGS: Pancreas: Visualized portions of the pancreatic head and body normal. Prominent pancreatic duct measuring 3-4 mm at the level of the pancreatic neck. Liver: Moderately hyperechogenic parenchyma with partial obscuration of the right hemidiaphragm, likely indicating moderate steatosis. The liver measures 16.6 cm in maximal sagittal dimension. Subcentimeter anechoic lesions likely hepatic cysts or hamartomas. Main portal vein patent with normal directional flow. Biliary: No intrahepatic biliary ductal dilatation. Common bile duct measures up to 10 mm in diameter. Hyperechogenic shadowing focus consistent with choledocholithiasis in the proximal to midportion of the common duct. Gallbladder: Gallstones in the mildly distended gallbladder. Posterior shadowing resulting from the calculi limited by rotation of the posterior wall. Gallbladder wall thickening measures up to 5 mm. Sonographic Campuzano's sign negative. However, the patient has recently received morphine. Right kidney: Normal in appearance without evidence of hydronephrosis. Ascites: None. Other: None. IMPRESSION: 1. Cholelithiasis with findings suspicious for calculus cholecystitis. The negative Campuzano's sign is felt to not be reliable given the recent administration of morphine. Surgical consultation is advised. 2. Choledocholithiasis with extrahepatic biliary ductal dilatation. 3. Pancreatic ductal prominence raises concern for a distal common bile duct calculus at the ampulla of Vater. 4. Hepatic steatosis. Correlate with liver function tests to exclude steatohepatitis as a cause for abdominal pain.
--- NOTE | 2018-09-19 15:40 | History & Physical Report ---
Date of Service September 19, 2018 Assessment & Plan (1) Acute calculous cholecystitis: This is a 48-year-old female who has significant past medical history of HTN, Watt who presents to [facility] ED after having a positive HIDA scan done as outpatient. HIDA Scan done 09/19/18 findings concerning for calculus cholecystitis with possible choledocholithiasis and extra hepatic ductal dilatation, pancreatic ductal prominence raises concern for distal CBD calculus at ampulla of vater. In ED patient was afebrile and hemo dynamically stable. LFTS, Lipase, CBC WNL. Gen Surgery consulted, Dr. Potts recommending MRCP with possible ERCP if choledocholithiasis present. If MRCP negative likely cholecystectomy tomorrow -admit to med/surg -LR at 100cc/hr -NPO with strict NPO at midnight -MRCP -Consult [facility], patient follows with Dr. Louis -IV Zosyn for acute cholecystitis -IV toradol 30mg IV q6hr prn mod pain; Morphine 4mg q4hr prn severe pain -repeat CBC, CMP, Lipase in a.m. -repeat ECG given poor quality in ED (2) Choledocholithiasis: -plan as above (3) HTN (hypertension): -blood pressure controlled in outpatient setting with lisinopril/hctz -will hold lisinopril/HCTZ while inpatient and place on lisinopril only with parameters -follow closely (4) WATT (nonalcoholic steatohepatitis): -low fat diet along with lifestyle modifications encouraged (5) GERD (gastroesophageal reflux disease): -PRN famotidine (6) WILFRED (obstructive sleep apnea): -mild, followed outpatient sleep medicine -not treated with cpap/bipap (7) IUD (intrauterine device) in place: (8) DVT prophylaxis: -SCDS, patient higher risk given morbid obesity with IUD in place -Avoid chemo prophylaxis given likely upcoming surgical procedure Disposition: D/C to home when able Follow up: PCP Dr. Mayen upon discharge Patient was seen in collaboration with Dr. Oneil, please see addendum Starting 09/20/18 patient will be followed by Dr. Veronica History of Present Illness Chief Complaint: Positive HIDA scan as outpatient Primary Care Provider: Jhoan Mayen MD This is a 48-year-old female who has significant past medical history of HTN, Watt, GERD, mild WILFRED who presents to [facility] ED after having a positive HIDA scan done as outpatient. Patient symptoms initially began in June after having fried rice. Developed stabbing epigastric pain that radiated to back with associated nausea and emesis. Was alleviated with rest and time approximately 12 hours. "Certain foods always bother me and I usually take ranitidine prior to eating them, onion into particular." She follows with [facility] and had outpatient ultrasound done in June that was significant for multiple gallstones without evidence of cholecystitis. Approximately 1 week ago she had a second attack after eating jambalaya. Symptoms similar, severe epigastric pain radiating to back; however, this lasted approximately 24 hours before remitting. Unable to eat or drink anything x 1 day. She was then ordered a HIDA scan. HIDA scan today revealed nonvisualization of gallbladder at 90 minutes even after morphine administration consistent with acute cholecystitis. She was then referred to ED. Currently abdominal pain is minimal. Pain was mimicked by HIDA scan, but not as severe. She denies any fever, chills, sweats, lightheadedness, dizziness, chest pain, shortness of breath, nausea, vomiting, diarrhea, change in bowel or bladder habits, melena, hematochezia. Back in June she was having difficulty with constipation prior to her, "attacks." +FH maternal grandmother of gall bladder problems. Prior abdominal surgeries include . Allergies Allergy/AdvReac Type Severity Reaction Status Date / Time procaine Allergy Unknown Verified 09/19/18 11:22 lidocaine Allergy Unknown Unverified 09/19/18 11:22 Home Medications Home Medications Medication Instructions Recorded Confirmed Type cholecalciferol (vitamin D3) 1,000 unit PO DAILY 09/19/18 09/19/18 History levonorgestrel [Mirena] 20 mcg INTRAUTERINE UD 09/19/18 09/19/18 History lisinopril-hydrochlorothiazide 1 tab PO DAILY 09/19/18 09/19/18 History loratadine [Claritin] 10 mg PO DAILY 09/19/18 09/19/18 History multivitamin 1 tab PO DAILY 09/19/18 09/19/18 History wheat dextrin [Benefiber Clear SF 1.5 g PO BID 09/19/18 09/19/18 History (dextrin)] Past Med/Surg History Medical History IUD (intrauterine device) in place mirena WATT (nonalcoholic steatohepatitis) HTN (hypertension) Seasonal allergies GERD (gastroesophageal reflux disease) Surgical History Previous section Social History Preferred Language: Arabic Communication Ability: Effective Fabric Worker Required: No Beliefs That Will Affect Care: None marital status: Current Living Situation: Spouse Feels Safe at Home: Yes Safety Concerns: Feels Safe At This Time Smoking Status: Former smoker Hx Alcohol Use: Yes Hx Substance Use: No Review of Systems All systems reviewed & are unremarkable except as noted in HPI & below Physical Exam Vital Signs (Past 24 Hours): Last Vital Signs Temp 36.8 C 09/19/18 10:36 Pulse 69 09/19/18 15:19 Resp 20 09/19/18 15:19 BP 131/96 09/19/18 15:19 Pulse Ox 98 09/19/18 15:19 Physical Exam: Gen: WD/WN, F, NAD, sitting up in bed, pleasant, conversing easily Head: Normocephalic, Atraumatic Eyes: Sclera normal, no conjunctival injection, PERRLA, EOMI ENT: Gross hearing intact, normal pharynx, mucous membranes moist Neck: supple, no adenopathy, No JVD, no bruit, Resp: Clear to auscultation b/l, no wheeze, rales, rhonchi. Normal insp/exp effort, no accessory muscle use CV: Regular rate, regular rhythm, no murmur, rub, gallop, or ectopy Abd: +obese abdomen, +BS x 4, soft, nontender, no rebound, guarding Musculoskeletal: moves extremities active rom x 4, strength intact, good industrial maintenance electrician strength Extremities: No edema bilaterally Skin: warm, moist, no rash, negative turgor, cap refill < 2sec Neuro: Alert and oriented x 3, speech normal, good mood/affect, cran nerve 2-12 intact grossly : deferred Results & Data Laboratory Results Short CBC 09/19/18 Range/Units 11:05 WBC 4.46 L (4.8-10.8) K/uL Hgb 14.7 (12.0-16.0) g/dL Hct 42.2 (37-47) % Plt Count 211 (130-400) K/uL BMP 09/19/18 11:05 Sodium 140 Potassium 3.8 Chloride 108 H Carbon Dioxide 27 BUN 15 Creatinine 0.65 Glucose 82 Calcium 8.5 Cardiac Enzymes 09/19/18 Range/Units 11:05 Troponin I < 0.015 (0-0.045) ng/ml Liver Function 09/19/18 Range/Units 11:05 Total Bilirubin 0.5 (0.2-1) mg/dl AST 35 (15-37) U/L ALT 69 (12-78) U/L Alkaline Phosphatase 71 (45-117) U/L Albumin 3.4 (3.4-5.0) gm/dl Diagnostic Findings Abd U/S: IMPRESSION: 1. Cholelithiasis with findings suspicious for calculus cholecystitis. The negative Campuzano's sign is felt to not be reliable given the recent administration of morphine. Surgical consultation is advised. 2. Choledocholithiasis with extrahepatic biliary ductal dilatation. 3. Pancreatic ductal prominence raises concern for a distal common bile duct calculus at the ampulla of Vater. 4. Hepatic steatosis. Correlate with liver function tests to exclude steatohepatitis as a cause for abdominal pain. CXR: FINDINGS: There is mild asymmetric right hilar prominence which appears unchanged. Cardiac silhouette is upper limits of normal in size. There is no pneumothorax, pleural effusion, focal airspace consolidation or overt pulmonary edema. Mild right h emidiaphragmatic elevation. The bones of the chest appear grossly intact. IMPRESSION: No acute process. HIDA: IMPRESSION: 1. Cholelithiasis with findings suspicious for calculus cholecystitis. The negative Campuzano's sign is felt to not be reliable given the recent administration of morphine. Surgical consultation is advised. 2. Choledocholithiasis with extrahepatic biliary ductal dilatation. 3. Pancreatic ductal prominence raises concern for a distal common bile duct calculus at the ampulla of Vater. 4. Hepatic steatosis. Correlate with liver function tests to exclude steatohepatitis as a cause for abdominal pain. ECG Rate (beats per minute): 63 Rhythm: normal sinus Comparison ECG Date: from (2012, poor quality ecg) Code Status & VTE Plan Code Status Full Code VTE Prophylaxis Plan VTE Prophylaxis will be ordered: Yes Supervising Physician Co-Signing Physician Notes Patient is a 48-year-old female with history of WATT and other problems presents with history of positive HIDA scan for further evaluation and management. Patient complains of ongoing epigastric and right upper quadrant abdominal pain radiating to back, associated with nausea and vomiting. Please review HPI for complete details of presentation and patient's history. Abdominal ultrasound suggestive of possible calculus cholecystitis, choledocholithiasis with extrahepatic biliary duct dilatation, hepatic steatosis, and findings suggestive of distal CBD calculus at the ampulla of Vater. Patient was evaluated by surgery while in ED who suggested to consult gastroenterology for MRCP and possible ERCP for choledocholithiasis. On exam patient is obese, no distress, lungs are clear to auscultation, S1-S2, no murmur, abdomen is soft, right upper quadrant and epigastric tenderness, bowel sounds are present,AAOX3, no focal deficits, no pedal edema. Patient is admitted for management of acute calculus cholecystitis and choledocholithiasis. LFTs are within normal range. Plan to start on IV antibiotics, IV fluids, pain control, n.p.o. after midnight, gastroenterology in surgery are consulted. I personally reviewed the record. Patient is interviewed and examined at bedside. Patient's care is coordinated with Julia Proctor PA-C. Please refer to the documentation above for details of patient's presentation and for discussion of other issues. (1) GERD (gastroesophageal reflux disease) Esophagitis presence: esophagitis presence not specified Qualified Code(s): K21.9 - Gastro-esophageal reflux disease without esophagitis (2) HTN (hypertension) Hypertension type: essential hypertension Qualified Code(s): I10 - Essential (primary) hypertension
[2018-09-19] MEDS ORDERED: ACETAMINOPHEN 325 MG TAB PO PRN (16:20)
[2018-09-19] MEDS ORDERED: ALUMINUM/MAGNESIUM SUSP 30 ML UDC PO PRN (16:20)
[2018-09-19] MEDS ORDERED: MAGNESIUM HYDROXIDE SUSP 30 ML UDC PO PRN (16:20)
[2018-09-19] MEDS ORDERED: POLYETHYLENE (MIRALAX) 17 GM PACK PO PRN (16:20)
[2018-09-19] MEDS ORDERED: PIPERACILL/TAZOBAC CONSULT ACTIVE PRN (16:20)
[2018-09-19] MEDS ORDERED: MoRPHine SULFATE 4 MG/ML 1 ML CARP\\VIAL IV PRN (16:20)
[2018-09-19] MEDS ORDERED: KETOROLAC 30 MG/ML VIAL IV PRN (16:20)
[2018-09-19] MEDS ORDERED: ONDANSETRON INJ 2 MG/ML 2 ML VIAL IV PRN ×2 (16:20→17:05)
[2018-09-19] MEDS ORDERED: PIPERACILLIN/TAZOBACTAM 4.5 GM in DEXTROSE 5% 100 ML IV ONE (17:00)
[2018-09-19] MEDS ORDERED: PROPOFOL IV EMULSION 10 MG/ML 20 ML VIAL IV ONE (17:03)
[2018-09-19] MEDS ORDERED: fentaNYL citrate 100 MCG/2 ML VIAL ONE (17:03)
[2018-09-19] MEDS ORDERED: MIDAZOLAM HCL 1 MG/ML 2ML VIAL ONE (17:03)
[2018-09-19] MEDS ORDERED: fentaNYL citrate 100 MCG/2 ML VIAL IV PRN (17:05)
[2018-09-19] MEDS ORDERED: MEPERIDINE HCL 25 MG/ML CARP IV PRN (17:05)
[2018-09-19] MEDS ORDERED: LABETALOL HCL IV 5 MG/ML 20ML IV PRN (17:05)
[2018-09-19] MEDS ORDERED: ATROPINE SULFATE 0.1 MG/ML 10ML SYR IV PRN (17:05)
[2018-09-19] MEDS ORDERED: INDOMETHACIN 50 MG SUPP PR PRN (17:05)
[2018-09-19] MEDS ORDERED: PHENYLEPHRINE 100MCG/ML 5ML SYR IV PRN (17:05)
[2018-09-19] MEDS ORDERED: ePHEDrine sulfate 50 MG/ML AMP IV PRN (17:05)
--- NOTE | 2018-09-19 17:10 | Anesthesiology Consultation ---
Date of Service September 19, 2018 Assessment & Plan (1) Encounter for pre-operative examination: Chart Review Chart Review: Acceptable Risk for Surgery and Patient NOT seen in Pre Admission Testing Consults Requested none ASA ASA2 Proposed Anesthesia Anesthesia Type: General Risk / Benefits Reviewed With: PT / POA / Parent / Guardian, Accepts Plan and In formed Consent Obtained NPO Date Last Intake of Fluids: 09/18/18 Time Last Intake of Fluids: 23:59 Date Last Intake of Solids: 09/18/18 Time Last Intake of Solids: 23:59 History Surgery Operation Date: 09/19/18 13:05 Proposed Procedures p Endoscopic Retrograde Cholangiopancreato Roly Louis Height/Weight Height: 5 ft 2 in Weight: 95.753 kg Allergies Allergy/AdvReac Type Severity Reaction Status Date / Time procaine Allergy Unknown Verified 09/19/18 11:22 lidocaine Allergy Unknown Unverified 09/19/18 11:22 Medications Home Medications Medication Instructions Recorded Confirmed Last Taken cholecalciferol (vitamin D3) 1,000 unit PO DAILY 09/19/18 09/19/18 09/18/18 levonorgestrel [Mirena] 20 mcg INTRAUTERINE UD 09/19/18 09/19/18 09/19/18 lisinopril-hydrochlorothiazide 1 tab PO DAILY 09/19/18 09/19/18 09/18/18 loratadine [Claritin] 10 mg PO DAILY 09/19/18 09/19/18 09/18/18 multivitamin 1 tab PO DAILY 09/19/18 09/19/18 09/18/18 wheat dextrin [Benefiber Clear SF 1.5 g PO BID 09/19/18 09/19/18 Unknown (dextrin)] Past Medical History Medical History IUD (intrauterine device) in place mirena BRYSON (nonalcoholic steatohepatitis) HTN (hypertension) Seasonal allergies GERD (gastroesophageal reflux disease) Past Family History Family History Grandmother (Maternal) Cholecystitis Mother T2DM (type 2 diabetes mellitus) Ovarian cancer Father Kidney malignancy Past Surgical History Surgical History Previous section History of ear, nose, and throat (ENT) surgery Social History Smoking Status: Former smoker tobacco type: cigarettes Smoking cigarettes per day: 1 PPD x 15 years, Quit 2009 Hx Alcohol Use: Yes Alcohol type: wine alcohol intake frequency: holidays/special occasions only Hx Substance Use: No substance use type: does not use Review of Systems no chest pain or sob Physical Exam Vital Signs Last Vital Signs Temp 36.8 C 09/19/18 17:11 Pulse 66 09/19/18 17:11 Resp 18 09/19/18 17:11 BP 150/109 H 09/19/18 17:11 Pulse Ox 97 09/19/18 17:11 Constitutional + obese ENMT Mouth: + dental caries Thyromental Distance: > or= 3.5 Finger Breadths Mallampati Class: II Neck normal visual inspection Respiratory normal respiratory effort Cardiovascular Rate/Rhythm: regular rate and regular rhythm Musculoskeletal Spine: lumbar spine normal to inspection; normal cervical ROM and no pain with cervical ROM Neurologic moves all extremities Psychiatric Orientation: alert and oriented x 3 Testing Laboratory Results 09/19/18 11:05 09/19/18 11:05 PT 10.5 Seconds (9.0-12.0) 09/19/18 11:05 INR 1.0 (0.9-1.1) 09/19/18 11:05 hcg negative
[2018-09-19] MEDS ORDERED: SCOPOLAMINE 1.5 MG TDSY ONE (17:11)
[2018-09-19] MEDS ORDERED: LACTATED RINGER'S 1,000 ML IV SCH (17:15)
[2018-09-19] MEDS ORDERED: INDOMETHACIN 50 MG SUPP PR ONE (17:19)
[2018-09-19] MEDS ORDERED: SCOPOLAMINE 1.5 MG TDSY TD ONE (17:22)
--- NOTE | 2018-09-19 17:22 | History & Physical Report ---
Date of Service September 19, 2018 History of Present Illness Chief Complaint: CBD stones Primary Care Provider: Jhoan Mayen MD For ERCP Allergies Allergy/AdvReac Type Severity Reaction Status Date / Time procaine Allergy Unknown Verified 09/19/18 11:22 lidocaine Allergy Unknown Unverified 09/19/18 11:22 Home Medications Home Medications Medication Instructions Recorded Confirmed Type cholecalciferol (vitamin D3) 1,000 unit PO DAILY 09/19/18 09/19/18 History levonorgestrel [Mirena] 20 mcg INTRAUTERINE UD 09/19/18 09/19/18 History lisinopril-hydrochlorothiazide 1 tab PO DAILY 09/19/18 09/19/18 History loratadine [Claritin] 10 mg PO DAILY 09/19/18 09/19/18 History multivitamin 1 tab PO DAILY 09/19/18 09/19/18 History wheat dextrin [Benefiber Clear SF 1.5 g PO BID 09/19/18 09/19/18 History (dextrin)] Past Med/Surg History Medical History IUD (intrauterine device) in place mirena BRYSON (nonalcoholic steatohepatitis) HTN (hypertension) Seasonal allergies GERD (gastroesophageal reflux disease) Surgical History Previous section History of ear, nose, and throat (ENT) surgery Family History Grandmother (Maternal) Cholecystitis Mother T2DM (type 2 diabetes mellitus) Ovarian cancer Father Kidney malignancy Social History Preferred Language: Bulgarian Communication Ability: Effective Boat 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 Beliefs That Will Affect Care: None marital status: Current Living Situation: Spouse Feels Safe at Home: Yes Safety Concerns: Feels Safe At This Time Smoking Status: Former smoker Hx Alcohol Use: Yes Hx Substance Use: No Physical Exam Vital Signs (Past 24 Hours): Last Vital Signs Temp 36.8 C 09/19/18 17:11 Pulse 66 09/19/18 17:11 Resp 18 09/19/18 17:11 BP 150/109 H 09/19/18 17:11 Pulse Ox 97 09/19/18 17:11 Constitutional: + obese Respiratory: normal respiratory effort Cardiovascular: Rate/Rhythm: regular rate and regular rhythm Gastrointestinal (Abdomen): Percussion/Palpation: abdomen soft Code Status & VTE Plan VTE Prophylaxis Plan VTE Prophylaxis will be ordered: Yes
[2018-09-19] MEDS ORDERED: ONDANSETRON INJ 2 MG/ML 2 ML VIAL ONE (17:34)
[2018-09-19] MEDS ORDERED: DEXAMETHASONE SOD INJ 4 MG/ML VIAL ONE (17:34)
[2018-09-19] MEDS ORDERED: CIPROFLOXACIN 400 MG/200 ML BAG IV SCH (17:45)
--- NOTE | 2018-09-19 17:57 | GI REPORT ---
Patient Name: Araceli Su Procedure Date: 09/19/2018 5:30 PM Date of : 1970 Admit Type: Inpatient Age: 48 Gender: Female Attending MD: Al Louis MD Procedure: ERCP Providers: Al Louis MD Referring MD: Referred Self Indications: Evaluation and possible treatment of bile duct stone(s) Medicines: General Anesthesia Complications: No immediate complications. Estimated Blood Loss: Estimated blood loss was minimal. Procedure: Pre-Anesthesia Assessment: - Prior to the procedure, a History and Physical was performed, and patient medications, allergies and sensitivities were reviewed. The patient's tolerance of previous anesthesia was reviewed. - The risks and benefits of the procedure and the sedation options and risks were discussed with the patient. All questions were answered and informed consent was obtained. After obtaining informed consent, the scope was passed under direct vision. Throughout the procedure, the patient's blood pressure, pulse, and oxygen saturations were monitored continuously. The Scope was introduced through the mouth, and advanced to the duodenum and used to inject contrast into the bile duct. The ERCP was accomplished without difficulty. The patient tolerated the procedure well. Findings: The bile duct was deeply cannulated with the short-nosed traction sphincterotome. Contrast was injected. I personally interpreted the bile duct images. There was brisk flow of contrast through the ducts. Contrast extended to the main bile duct. Opacification of the main bile duct was seen. The maximum diameter of the ducts was 9 mm. A 5 mm biliary sphincterotomy was made with a short nose sphincterotome using ERBE electrocautery. The sphincterotomy oozed blood. To discover objects, the biliary tree was swept with an 8.5 mm balloon. Nothing was found. Impression: - A biliary sphincterotomy was performed. - The biliary tree was swept and nothing was found. Recommendation: - [facility]. Al Louis M.D. Al Louis MD 09/19/2018 5:56:47 PM This report has been signed electronically. Note Initiated On: 09/19/2018 5:30 PM Number of Addenda: 0 I attest to the content of the Intraoperative Record and orders documented therein, exceptions below {[id number]}
--- NOTE | 2018-09-19 18:02 | Fluoroscopy Report ---
FL ERCP biliary ductal CLINICAL HISTORY: ERCP COMPARISON STUDY: Ultrasound 09/19/2018 FLUOROSCOPY TIME: 2 minutes NUMBER OF FLUOROSCOPIC IMAGES: 3 FINDINGS: Limited visibility of the common bile duct based on the lateral projection. Resolution is i n adequate to confirm or exclude choledocholithiasis. IMPRESSION: Limited study confined to the lateral projection. No evidence for diagnostic caliber imag es. The above report was generated using voice recognition software. It may contain grammatical, syntax or spelling errors. Electronically signed by: Martin Bass M.D. 09/19/2018 6:01 PM
--- NOTE | 2018-09-19 18:36 | Anesthesiology Progress Note ---
Date of Service September 19, 2018 Anesthesia Post Procedure Vital Signs Vital Signs: Temp Pulse Pulse Pulse Resp BP BP 09/19/18 18:30 88 15 119/93 09/19/18 18:20 85 20 159/89 H 09/19/18 18:11 36.3 C L 94 H 20 159/83 H 09/19/18 17:11 36.8 C 66 18 09/19/18 16:23 36.7 C 66 18 09/19/18 16:20 36.7 C 66 18 09/19/18 15:19 69 20 09/19/18 14:08 69 17 09/19/18 12:09 62 17 09/19/18 10:36 36.8 C 72 18 145/97 H BP Pulse Ox 09/19/18 18:30 99 09/19/18 18:20 99 09/19/18 18:11 97 09/19/18 17:11 150/109 H 97 09/19/18 16:23 154/99 H 96 09/19/18 16:20 154/99 H 96 09/19/18 15:19 131/96 98 09/19/18 14:08 152/95 H 98 09/19/18 12:09 129/84 96 09/19/18 10:36 98 Notes Mental Status: alert / awake / arousable Patient Amnestic to Procedure: Yes Nausea / Vomiting: adequately controlled Pain: adequately controlled Airway Patency, RR, SpO2: stable & adequate BP & HR: stable & adequate Hydration State: stable & adequate Anesthetic Complications: no major complications apparent and Pt Satisfied with anesthetic care
--- NOTE | 2018-09-19 19:15 | Consultation Report ---
DATE OF CONSULTATION: 09/19/2018 REASON FOR EVALUATION: Acute cholecystitis and common bile duct stone. HISTORY OF PRESENT ILLNESS: The patient is a 48-year-old who underwent an ultrasound in June, which showed gallstones. Since then, she has had a couple of episodes of severe abdominal pain. She was referred for a biliary scan which she had earlier today which showed nonvisualization of the gallbladder consistent with acute cholecystitis. Subsequent imaging by ultrasound showed stones in the bile duct and the bile duct was dilated to 10 mm. The patient is n.p.o. today and ERCP has been requested. PAST MEDICAL HISTORY: Remarkable for hypertension, steatohepatitis, esophageal reflux, obstructive sleep apnea. PAST SURGICAL HISTORY: She has had a previous . ALLERGIES: PROCAINE, LIDOCAINE. MEDICATIONS: Vitamin D, Mirena control, lisinopril/hydrochlorothiazide, Claritin, multiple vitamin, Benefiber. SOCIAL HISTORY: The patient is ; does not smoke currently, but did smoke in the past; does use alcohol. REVIEW OF SYSTEMS: Negative for 12 systems other than for current symptoms. PHYSICAL EXAMINATION: VITAL SIGNS: The patient has normal vital signs. Blood pressure is 131/96, however. LUNGS: Clear. HEART: Showed a normal S1 and S2. Regular rate and rhythm without murmurs, rubs, or gallops. ABDOMEN: Shows a scar. There is some mild tenderness in the upper abdomen. LABORATORY DATA: The patient has normal CBC and liver profile. IMPRESSION AND PLAN: The patient has acute cholecystitis with stones in her bile duct. The patient will be given IV Cipro and Indocin suppositories and undergo ERCP later today.
[2018-09-19] MEDS: LACTATED RINGER'S 1,000 ML IV SCH (21:19)
[2018-09-19] MEDS: CHECK SCOPOLAMINE PATCH PLACEMENT SCH (23:46)
[2018-09-20] MEDS: PIPERACILLIN/TAZOBACTAM 3.375 GM in DEXTROSE 5% 100 ML IV SCH ×3 (02:02→17:51)
[2018-09-20] MEDS: LACTATED RINGER'S 1,000 ML IV SCH ×3 (06:00→22:30)
[2018-09-20 06:50] LABS: Hematocrit (blood only) 40.5 % (37-47); Hemoglobin 13.9 g/dL (12.0-16.0); Immature Granulocytes # (auto) 0.02 K/uL (0.00-0.02); Immature Granulocytes % (auto) 0.4 %; Lymphocytes % (auto) 10.9 %; Mean Corpuscular Hgb Conc 34.3 g/dL (32-36); Mean Platelet Volume 10.2 fL (7.4-10.4); Monocytes # (auto) 0.08 K/uL (0.11-0.59); Monocytes % (auto) 1.5 %; Neutrophils # (auto) 4.78 K/uL (1.4-6.5); Neutrophils % (auto) 87.2 %; Platelet Count 215 K/uL (130-400); RDW Coefficient of Variation 12.3 % (11.5-14.5); RDW Standard Deviation 39.3 fL (36.4-46.3); White Blood Count 5.48 K/uL (4.8-10.8)
[2018-09-20 07:03] LABS: Albumin Level 3.1 gm/dl (3.4-5.0); BUN Creatinine Ratio 15.3 (10-20); Calcium 8.4 mg/dl (8.5-10.1); Creatinine Clr Calc Pharmacy 85.2 ml/min; Est GFR (African American) 90.1; Est GFR (Non-African American) 77.7
[2018-09-20 07:06] LABS: Albumin Globulin Ratio 0.9 (0.9-2); Bilirubin,Total 0.6 mg/dl (0.2-1); Globulin 3.6 gm/dl (2.5-4.0); Total Protein 6.7 gm/dl (6.4-8.2)
[2018-09-20] MEDS: LISINOPRIL 20 MG TAB PO SCH (07:24)
[2018-09-20] MEDS: CHECK SCOPOLAMINE PATCH PLACEMENT SCH ×3 (07:24→23:15)
[2018-09-20] MEDS: CHOLECALCIFEROL 1,000 UNITS TAB PO SCH (07:24)
--- NOTE | 2018-09-20 10:06 | Hospitalist Progress Note ---
Date of Service September 20, 2018 Assessment & Plan (1) Acute calculous cholecystitis: This is a 48-year-old female who has significant past medical history of HTN, Watt who presents to [facility] ED after having a positive HIDA scan done as outpatient. HIDA Scan done 09/19/18 findings concerning for calculus cholecystitis with possible choledocholithiasis and extra hepatic ductal dilatation, pancreatic ductal prominence raises concern for distal CBD calculus at ampulla of vater. In ED patient was afebrile and hemo dynamically stable. LFTS, Lipase, CBC WNL. Gen Surgery consulted, Dr. Potts recommending MRCP with possible ERCP if choledocholithiasis present. ERCP was done and stones were extracted, sphincterotomy performed NPO with strict NPO at midnight GI on case patient follows with Dr. Louis -IV Zosymartina for acute cholecystitis -IV toradol 30mg IV q6hr prn mod pain; Morphine 4mg q4hr prn severe pain Monitor daily labs (2) Choledocholithiasis: ERCP done, await surgical input (3) HTN (hypertension): Controlled, we will monitor (4) WATT (nonalcoholic steatohepatitis): -low fat diet along with lifestyle modifications encouraged (5) GERD (gastroesophageal reflux disease): -PRN famotidine (6) WILFRED (obstructive sleep apnea): -mild, followed outpatient sleep medicine -not treated with cpap/bipap (7) IUD (intrauterine device) in place: No issues (8) DVT prophylaxis: -SCDs, patient higher risk given morbid obesity with IUD in place -Avoid chemo prophylaxis given likely upcoming surgical procedure Disposition: D/C to home when able Follow up: PCP Dr. Mayen upon discharge Subjective 48-year-old who underwent an ultrasound in June, which showed gallstones. Since then, she has had a couple of episodes of severe abdominal pain. She was referred for a biliary scan which she had earlier today which showed nonvisualization of the gallbladder consistent with acute cholecystitis. Subsequent imaging by ultrasound showed stones in the bile duct and the bile duct was dilated to 10 mm. The patient had an ERCP 09/19. See report. ROS-No Headache, No Visual Changes, No Nausea, No Vomiting, No Fever, No Chills, No Neck Pain or Stiffness, No Chest Pain, No Palpitations, No SOB, No CHEN, No Cough, No Sputum, No Wheezing, No Abdominal Pain, No Diarrhea, No Hematemesis, No Hemoptysis, No Unexpected Weight Loss, No Flank pain, No Melena, No Hematochezia, No Frequency, No Urgency, No Burning, No Hematuria, No Rashes, No Diaphoresis. Appetite is Normal, feels a lot better Physical Exam Gen-AAO x 3, NAD, Afebrile, Obese, Female, Fair, [place] and in her forties Head-NCAT, EOMI, PERRLA, Anicteric Sclera, No Posterior Pharyngeal Erythema Neck-Supple, No JVD, No Thyromegaly, No Masses, No LAD, No Bruits Lungs-Clear to Auscultation Bilaterally, No Rales, No Rhonchi, No Wheezing, No Crepitus Chest-No S4, +S1, +S2, No S3, No Murmurs, No Rubs, No Gallops, No Ectopy Abdomen-Soft, Bowel Sounds Present, Non Tender, Non Distended, No Hepatomegaly, No Splenomegaly, No Palpable Masses, No Rebound, No Rigidity, No Guarding Musculoskeletal-Full Range of Motion Bilaterally, No CVAT Extremities-No Cyanosis, No Clubbing, No Edema Nuero-Cranial Nerves II-XII grossly intact, Motor WNL, DTRs WNL, Strength WNL, Non Focal Psych-Normal Mood Physical Exam Vital Signs (Past 24 Hours): Last Vital Signs Temp 36.8 C 09/20/18 03:24 Pulse 58 L 09/20/18 03:24 Resp 18 09/20/18 03:24 BP 116/80 09/20/18 03:24 Pulse Ox 94 09/20/18 03:24 Results & Data Laboratory Results Current Diagnoses Obstructive sleep apnea (adult) (pediatric) (09/19/18) Essential (primary) hypertension (09/19/18) Gastro-esophageal reflux disease without esophagitis (09/19/18) Nonalcoholic steatohepatitis (WATT) (09/19/18) Calculus of gallbladder with acute cholecystitis without obstruction (09/19/18) Calculus of bile duct without cholangitis or cholecystitis without obstruction (09/19/18) Encounter for other preprocedural examination (09/19/18) Presence of (intrauterine) contraceptive device (09/19/18) Allergies procaine Allergy (Unknown, Verified 09/19/18 11:22) lidocaine Allergy (Unverified 09/19/18 11:22) Unknown Height/Weight/Isolation Height 5 ft 2 in Weight 95.753 kg Chemistry 09/19/18 09/20/18 11:05 06:12 Sodium 140 140 Potassium 3.8 4.0 Chloride 108 H 107 Carbon Dioxide 27 26 Anion Gap 5.0 7.0 BUN 15 14 Creatinine 0.65 0.89 Glucose 82 138 H (1) HTN (hypertension) Hypertension type: essential hypertension Qualified Code(s): I10 - Essential (primary) hypertension (2) GERD (gastroesophageal reflux disease) Esophagitis presence: esophagitis presence not specified Qualified Code(s): K21.9 - Gastro-esophageal reflux disease without esophagitis
--- NOTE | 2018-09-20 10:18 | Gastroenterology Progress Note ---
Date of Service September 20, 2018 Assessment & Plan (1) Choledocholithiasis: ERCP went uneventful. Plans in place for cholecystectomy on Saturday. No additional recommendations for now (2) Acute calculous cholecystitis: As above Subjective Gastrointestinal: no abdominal pain Physical Exam Vital Signs (Past 24 Hours): Last Vital Signs Temp 36.8 C 09/20/18 03:24 Pulse 58 L 09/20/18 03:24 Resp 18 09/20/18 03:24 BP 116/80 09/20/18 03:24 Pulse Ox 94 09/20/18 03:24 Constitutional: well nourished and comfortable; no acute distress Gastrointestinal (Abdomen): Inspection/Auscultation: abdomen normal to inspection Percussion/Palpation: abdomen soft; abdomen nontender and no guarding Results & Data Laboratory Results Reviewed
--- NOTE | 2018-09-20 10:33 | Surgery Progress Note ---
Date of Service September 20, 2018 pt is doing better, no nausea, no vomiting,less abdominal pain, Assessment & Plan (1) Acute calculous cholecystitis: 48 year-old female who was having outpatient HIDA scan today for gallbladder evaluation in the setting of two previous episodes of "gallbladder attacks" with abdominal pain, nausea, vomiting, and bloating. HIDA showed evidence of acute cholecystitis with nonvisualization of the gallbladder after 90 minutes and Morhpine administration. Emergency room work-up included labs which were completely unremarkable including cbc, bmp, LFTs, t. bili, and lipase. Abdominal ultrasound however shows dilated CBD at 10 mm (5 mm previously) with shadowing focus in the mid common bile duct consistent with choledochlithiasis as well as prominence of the pancreatic duct at the pancreatic neck. Abdomen is soft, nondistended, tender in the RUQ on deep palp ation. Negative Campuzano's sign but given IV pain medication in ER. Hemodynamically stable, afebrile Plan: Discussed with patient that her two imaging studies and her labs are discordant with one another. There is concern for possible choledocholithiasis on today's ultrasound with dilated CBD at 10 mm (5 mm on previous US in June). Therefore given these findings, would recommend further evaluation of the biliary system with MRCP prior to cholecystectomy. Discussed she may need ERCP prior to cholecystectomy depending on further studies. Would recommend hospitalist admission with GI consult and MRCP for further evaluation Recommend IV abx for cholecystitis IV fluids and pain management as needed Repeat am labs including cbc, bmp, LFTs, and lipase NPO after midnight if diet advanced later this evening If further work-up negative possible cholecystectomy tomorrow with Dr. Potts. I reviewed pt's H/P with pt, Plan, I recommend to do laparosocpic cholecystectomy, possible open, on 10AM 09/21/2018, D/W benefits, risks and alternatives of the surgery, the risks - infection, bleeding, injury CBD, bowel, DVT, , pt understood, she agrees with the surgery, I answered all questions, NPO after MN on 09/20/2018 09/20/2018, 10:35AM doing fine, D/W above plan, benefits, risks and alternatives of the surgery, pt agrees with the surgery, she signed consent, I answered all questions, (2) Choledocholithiasis: Ultrasound showing dilated CBD at 10 mm with shadowing focus Prominence of pancreatic duct concerning for distal CBD stone?? HIDA scan however showed radiotracer uptake in small bowel Plan as above Discussed patient with Dr. Potts who agrees with above Subjective Gastrointestinal: + abdominal pain and + bloating; no belching, no nausea, no vomiting, no coffee ground emesis, no hematemesis, no change in stools, no constipation, no diarrhea/loose stools, no blood in stools and no melena Physical Exam Vital Signs (Past 24 Hours): Last Vital Signs Temp 36.8 C 09/20/18 03:24 Pulse 58 L 09/20/18 03:24 Resp 18 09/20/18 03:24 BP 116/80 09/20/18 03:24 Pulse Ox 94 09/20/18 03:24 Constitutional: WD/WN, vitals as above Neck: trachea midline, no thyromegaly Respiratory: normal respiratory effort, lungs clear to auscultation Cardiovascular: RRR, no murmur, no edema Rate/Rhythm: regular rate and regular rhythm Heart Sounds: normal S1 and normal S2 Gastrointestinal (Abdomen): Percussion/Palpation: + abdomen tender and abdomen soft slightly tenderness at RUQ, no rebound pain, Neurologic: awake Psychiatric: Orientation: alert and oriented x 3 Results & Data Laboratory Results Abnormal lab results 09/19/18 09/19/18 09/20/18 Range/Units 11:05 11:05 06:12 WBC 4.46 L (4.8-10.8) K/uL Lymph # (Auto) 1.01 L 0.60 L (1.2-3.4) K/uL [place] # (Auto) 0.08 L (0.11-0.59) K/uL Chloride 108 H (98-107) mmol/L BUN/Creatinine Ratio 22.8 H (10-20) Glucose (70-99) mg/dl Calcium (8.5-10.1) mg/dl Albumin (3.4-5.0) gm/dl 09/20/18 Range/Units 06:12 WBC (4.8-10.8) K/uL Lymph # (Auto) (1.2-3.4) K/uL [place] # (Auto) (0.11-0.59) K/uL Chloride (98-107) mmol/L BUN/Creatinine Ratio (10-20) Glucose 138 H (70-99) mg/dl Calcium 8.4 L (8.5-10.1) mg/dl Albumin 3.1 L (3.4-5.0) gm/dl
[2018-09-20] MEDS ORDERED: COUGH DROP (SUGAR FREE) LOZ 24 LOZ/1 BOX BUCCAL ONE (15:11)
[2018-09-21] MEDS: PIPERACILLIN/TAZOBACTAM 3.375 GM in DEXTROSE 5% 100 ML IV SCH ×2 (03:52→17:31)
[2018-09-21 06:22] LABS: Hematocrit (blood only) 38.3 % (37-47); Mean Corpuscular Hgb Conc 33.9 g/dL (32-36); Mean Corpuscular Volume 89.3 fL (80-100); Mean Platelet Volume 9.9 fL (7.4-10.4); Platelet Count 188 K/uL (130-400); RDW Coefficient of Variation 12.6 % (11.5-14.5); RDW Standard Deviation 39.8 fL (36.4-46.3); Red Blood Count 4.29 M/uL (4.2-5.4)
[2018-09-21 06:53] LABS: Albumin Level 3.2 gm/dl (3.4-5.0); BUN Creatinine Ratio 12.8 (10-20); Calcium 8.3 mg/dl (8.5-10.1); Creatinine Clr Calc Pharmacy 87.2 ml/min; Est GFR (African American) 92.6; Est GFR (Non-African American) 79.9; Potassium 3.7 mmol/L (3.5-5.1)
[2018-09-21 06:56] LABS: Bilirubin,Total 0.7 mg/dl (0.2-1); Globulin 3.2 gm/dl (2.5-4.0); Total Protein 6.4 gm/dl (6.4-8.2)
--- NOTE | 2018-09-21 08:11 | Anesthesiology Consultation ---
Date of Service September 21, 2018 Assessment & Plan Chart Review Chart Review: Acceptable Risk for Surgery and Patient NOT seen in Pre Admission Testing Consults Requested none ASA ASA2 Proposed Anesthesia Anesthesia Type: General NPO Date Last Intake of Fluids: 09/18/18 Time Last Intake of Fluids: 22:30 Date Last Intake of Solids: 09/18/18 Time Last Intake of Solids: 22:30 History Surgery Operation Date: 09/19/18 13:05 Proposed Procedures p Endoscopic Retrograde Cholangiopancreato - Al Louis Operation Date: 09/21/18 11:00 Proposed Procedures p Laparoscopic Cholecystectomy - Eugenia Potts MD Height/Weight Height: 5 ft 2 in Weight: 95.753 kg Allergies Allergy/AdvReac Type Severity Reaction Status Date / Time procaine Allergy Unknown Verified 09/19/18 11:22 lidocaine Allergy Unknown Unverified 09/19/18 11:22 Medications Home Medications Medication Instructions Recorded Confirmed Last Taken cholecalciferol (vitamin D3) 1,000 unit PO DAILY 09/19/18 09/19/18 09/18/18 levonorgestrel [Mirena] 20 mcg INTRAUTERINE UD 09/19/18 09/19/18 09/19/18 lisinopril-hydrochlorothiazide 1 tab PO DAILY 09/19/18 09/19/18 09/18/18 loratadine [Claritin] 10 mg PO DAILY 09/19/18 09/19/18 09/18/18 multivitamin 1 tab PO DAILY 09/19/18 09/19/18 09/18/18 wheat dextrin [Benefiber Clear SF 1.5 g PO BID 09/19/18 09/19/18 Unknown (dextrin)] Active Medications Generic Name Dose Route Start Last Admin Trade Name Freq PRN Reason Stop Dose Admin Lactated Ringer's 1,000 mls @ 100 mls/hr 09/19/18 16:20 09/20/18 22:30 Lr IV 10/19/18 16:19 100 mls/hr .Q10H IMANI Administration Piperacillin Sod/Tazobactam 115 mls @ 28.75 mls/hr 09/19/18 22:00 09/21/18 03:52 Sod 3.375 gm/ Dextrose IV 09/29/18 21:59 28.8 mls/hr Q8H IMANI Administration Protocol Lisinopril 20 mg 09/20/18 09:00 09/20/18 07:24 Zestril PO 10/20/18 08:59 20 mg QAM IMANI Administration Miscellaneous 1 ea 09/20/18 00:00 09/20/18 23:15 Check Scopolamine Patch Placement N/A 10/20/18 00:00 1 ea QS IMANI Administration Vitamin D 1,000 units 09/20/18 09:00 09/20/18 07:24 Vitamin D3 PO 10/20/18 08:59 1,000 units DAILY IMANI Administration Past Medical History Medical History IUD (intrauterine device) in place mirena BRYSON (nonalcoholic steatohepatitis) HTN (hypertension) Seasonal allergies GERD (gastroesophageal reflux disease) Past Family History Family History Grandmother (Maternal) Cholecystitis Mother T2DM (type 2 diabetes mellitus) Ovarian cancer Father Kidney malignancy Past Surgical History Surgical History Previous section History of ear, nose, and throat (ENT) surgery S/P ERCP Past Anesthesia History No Hx of Anesthesia Complications and No Family Hx of Anesthesia Complications History of PONV Yes Motion Sickness Screening History of Motion Sickness: Yes Social History Smoking Status: Former smoker tobacco type: cigarettes Smoking cigarettes per day: 1 PPD x 15 years, Quit 2009 Hx Alcohol Use: Yes Alcohol type: wine alcohol intake frequency: holidays/special occasions only Hx Substance Use: No substance use type: does not use Exercise / Class Metabolic Activity II 4-5 Yardwork/Stairs/Walk up hill Physical Exam Vital Signs Last Vital Signs Temp 36.8 C 09/21/18 07:10 Pulse 53 L 09/21/18 07:10 Resp 16 09/21/18 07:10 BP 146/86 H 09/21/18 07:10 Pulse Ox 98 09/21/18 07:10 Testing Electrocardiogram Date: 09/20/18 Findings: + SB @ (at 48 with sinus arrhythmia) Chest X-Ray Date: 09/19/18 Findings: + NAD Laboratory Results 09/21/18 05:41 09/21/18 05:41 PT 10.5 Seconds (9.0-12.0) 09/19/18 11:05 INR 1.0 (0.9-1.1) 09/19/18 11:05
[2018-09-21] MEDS ORDERED: ROCURONIUM BROMIDE 10 MG/ML 5 ML VIAL ONE (08:13)
[2018-09-21] MEDS ORDERED: PROPOFOL IV EMULSION 10 MG/ML 20 ML VIAL IV ONE (08:13)
[2018-09-21] MEDS ORDERED: fentaNYL citrate 100 MCG/2 ML VIAL ONE (08:14)
[2018-09-21] MEDS ORDERED: MIDAZOLAM HCL 1 MG/ML 2ML VIAL ONE (08:14)
--- NOTE | 2018-09-21 09:38 | History & Physical Bridge Note ---
Date of Service September 21, 2018 History & Physical Bridge Note I have examined the patient, reviewed the History & Physical and in the interval since the performance of the History & Physical I have noted the following changes of clinical significance: no changes noted
[2018-09-21] MEDS ORDERED: ATROPINE SULFATE 0.1 MG/ML 10ML SYR IV PRN (09:39)
[2018-09-21] MEDS ORDERED: NALOXONE HCL 0.4 MG/1 ML VIAL/CARP IV PRN (09:39)
[2018-09-21] MEDS ORDERED: fentaNYL citrate 100 MCG/2 ML VIAL IV PRN (09:39)
[2018-09-21] MEDS ORDERED: ePHEDrine sulfate 50 MG/ML AMP IV PRN (09:39)
[2018-09-21] MEDS ORDERED: ONDANSETRON INJ 2 MG/ML 2 ML VIAL IV PRN (09:39)
[2018-09-21] MEDS ORDERED: PROMETHAZINE HCL 12.5 MG in SODIUM CHLORIDE 0.9% 50 ML IV PRN (09:39)
[2018-09-21] MEDS ORDERED: FLUMAZENIL 0.1 MG/1 ML 10 ML VIAL IV PRN (09:39)
[2018-09-21] MEDS ORDERED: LABETALOL HCL IV 5 MG/ML 20ML IV PRN (09:39)
[2018-09-21] MEDS ORDERED: BACITRACIN OINT 15 GM TUBE ONE (09:50)
[2018-09-21] MEDS ORDERED: BUPIVACAINE 0.5 % 5 MG/1 ML MPF 30ML VIAL ONE (09:51)
[2018-09-21] MEDS ORDERED: CEFAZOLIN 2000MG 2,000 MG/15 ML SYR IV SCH (10:00)
[2018-09-21] MEDS ORDERED: HYDROmorphone INJ 2 MG/ML SYR/VIAL ONE ×2 (10:17→10:45)
[2018-09-21] MEDS ORDERED: DEXAMETHASONE SOD INJ 4 MG/ML VIAL ONE (10:17)
[2018-09-21] MEDS ORDERED: ONDANSETRON INJ 2 MG/ML 2 ML VIAL ONE (10:17)
--- NOTE | 2018-09-21 11:36 | Hospitalist Progress Note ---
Date of Service September 21, 2018 Assessment & Plan (1) Acute calculous cholecystitis: This is a 48-year-old female who has significant past medical history of HTN, Watt who presents to [facility] ED after having a positive HIDA scan done as outpatient. HIDA Scan done 09/19/18 findings concerning for calculus cholecystitis with possible choledocholithiasis and extra hepatic ductal dilatation, pancreatic ductal prominence raises concern for distal CBD calculus at ampulla of vater. In ED patient was afebrile and hemo dynamically stable. LFTS, Lipase, CBC WNL. Gen Surgery consulted, Dr. Potts ERCP was done, sphincterotomy performed (2) Choledocholithiasis: ERCP done, OR today for lap kiah (3) HTN (hypertension): Controlled, we will monitor (4) WATT (nonalcoholic steatohepatitis): -low fat diet along with lifestyle modifications encouraged (5) GERD (gastroesophageal reflux disease): -PRN famotidine (6) WILFRED (obstructive sleep apnea): -mild, followed outpatient sleep medicine -not treated with cpap/bipap (7) IUD (intrauterine device) in place: No issues (8) DVT prophylaxis: -SCDs, patient higher risk given morbid obesity with IUD in place -Avoid chemo prophylaxis given likely upcoming surgical procedure Disposition: D/C to home when able Follow up: PCP Dr. Mayen upon discharge Subjective 48-year-old who underwent an ultrasound in June, which showed gallstones. Since then, she has had a couple of episodes of severe abdominal pain. She was referred for a biliary scan which she had earlier today which showed nonvisualization of the gallbladder consistent with acute cholecystitis. Subsequent imaging by ultrasound showed stones in the bile duct and the bile duct was dilated to 10 mm. The patient had an ERCP 09/19. See report. ROS-No Headache, No Visual Changes, No Nausea, No Vomiting, No Fever, No Chills, No Neck Pain or Stiffness, No Chest Pain, No Palpitations, No SOB, No CHEN, No Cough, No Sputum, No Wheezing, No Abdominal Pain, No Diarrhea, No Hematemesis, No Hemoptysis, No Unexpected Weight Loss, No Flank pain, No Melena, No Hematochezia, No Frequency, No Urgency, No Burning, No Hematuria, No Rashes, No Diaphoresis. Appetite is Normal, feels a lot better Physical Exam Gen-AAO x 3, NAD, Afebrile, Obese, Female, Fair, [place] and in her forties Head-NCAT, EOMI, PERRLA, Anicteric Sclera, No Posterior Pharyngeal Erythema Neck-Supple, No JVD, No Thyromegaly, No Masses, No LAD, No Bruits Lungs-Clear to Auscultation Bilaterally, No Rales, No Rhonchi, No Wheezing, No Crepitus Chest-No S4, +S1, +S2, No S3, No Murmurs, No Rubs, No Gallops, No Ectopy Abdomen-Soft, Bowel Sounds Present, Non Tender, Non Distended, No Hepatomegaly, No Splenomegaly, No Palpable Masses, No Rebound, No Rigidity, No Guarding Musculoskeletal-Full Range of Motion Bilaterally, No CVAT Extremities-No Cyanosis, No Clubbing, No Edema Nuero-Cranial Nerves II-XII grossly intact, Motor WNL, DTRs WNL, Strength WNL, Non Focal Psych-Normal Mood Physical Exam Vital Signs (Past 24 Hours): Last Vital Signs Temp 36.8 C 09/21/18 07:10 Pulse 53 L 09/21/18 07:10 Resp 16 09/21/18 07:10 BP 146/86 H 09/21/18 07:10 Pulse Ox 98 09/21/18 07:10 Results & Data Laboratory Results Reviewed (1) HTN (hypertension) Hypertension type: essential hypertension Qualified Code(s): I10 - Essential (primary) hypertension (2) GERD (gastroesophageal reflux disease) Esophagitis presence: esophagitis presence not specified Qualified Code(s): K21.9 - Gastro-esophageal reflux disease without esophagitis
--- NOTE | 2018-09-21 12:12 | Post Operative Brief Note ---
Immediate Post Op Note v1 Date of Surgery September 21, 2018 Pre & Post Diagnosis Operation Date: 09/19/18 13:05 Pre-Op Diagnosis: acute CHOLECYSTITIS, CBD stone Post-Op Diagnosis: acute CHOLECYSTITIS, CBD stone Operation Date: 09/21/18 11:00 Pre-Op Diagnosis: Cholecystitis cholelithiasis Post-Op Diagnosis: Cholecystitis, cholelithiasis Procedure Operation Date: 09/19/18 13:05 Actual Procedures p Endoscopic Retrograde Cholangiopancreatography,sphincterotomy(Not Applicable) - Al Louis Operation Date: 09/21/18 11:00 Actual Procedures p Laparoscopic Cholecystectomy(Not Applicable) - Eugenia Potts MD Surgeon Eugenia Potts MD Can Labeler surgical scheduler Estimated Blood Loss 20 Findings Consistent with Post-Op Diagnosis significant inflammation on gallbladder wall, Fluids 1400ml Specimens gallbladder Drains Denny-Magana Drain (10F round CAROLINA) Anesthesia Type General Complications none Disposition Accompanied Patient To Recovery: Yes Disposition: Recovery Room Overlapping Procedure I was immediately available: during the entire case.
--- NOTE | 2018-09-21 13:36 | Anesthesiology Progress Note ---
Date of Service September 21, 2018 Anesthesia Post Procedure Vital Signs Vital Signs: Temp Pulse Pulse Resp BP Pulse Ox 09/21/18 13:35 51 L 16 132/92 94 09/21/18 13:25 36.2 C L 49 L 13 136/78 95 09/21/18 13:15 50 L 12 127/90 94 09/21/18 13:05 52 L 12 152/94 H 97 09/21/18 12:55 50 L 12 148/84 H 99 09/21/18 12:45 58 L 12 137/90 99 09/21/18 12:36 36.1 C L 68 15 150/90 H 100 09/21/18 07:10 36.8 C 53 L 16 146/86 H 98 09/20/18 23:33 36.5 C 53 L 18 143/85 H 98 09/20/18 15:21 36.7 C 63 16 137/81 99 Pain Intensity Upper Abdomen: Pain Intensity: 3 Notes Mental Status: alert / awake / arousable Patient Amnestic to Procedure: Yes Nausea / Vomiting: adequately controlled Pain: adequately controlled Airway Patency, RR, SpO2: stable & adequate BP & HR: stable & adequate Hydration State: stable & adequate Anesthetic Complications: no major complications apparent
[2018-09-21] MEDS ORDERED: NON-FORMULARY MEDICATION (Levonorgestrel [Mirena] 20 MCG) IU SCH (13:55)
--- NOTE | 2018-09-21 15:05 | Operative Report ---
DATE OF OPERATION: 09/21/2018 PREOPERATIVE DIAGNOSES: Acute cholecystitis, cholelithiasis. POSTOPERATIVE DIAGNOSES: Acute cholecystitis, cholelithiasis. OPERATIVE PROCEDURE: Laparoscopic cholecystectomy. SURGEON: Eugenia Potts MD. ANESTHESIA: General. ESTIMATED BLOOD LOSS: About 20 mL. FINDINGS: Significant inflammation on the gallbladder wall, acute cholecystitis. COMPLICATIONS: None. INDICATIONS FOR THE PROCEDURE: This is a 48-year-old female who was admitted to the hospital for acute cholecystitis, cholelithiasis and the patient also is status post ERCP. I recommended to do laparoscopic cholecystectomy, possible open, possible cholangiogram. I did talk to the patient about the benefit, risk, and alternate procedure. I indicated the risks may include but not limited to such as bleeding, infection, injury to common bile duct, injury to the bowel, myocardial infarction, DVT, stroke and even . The patient understands. She signed informed consent and I answered all of her questions. DETAILS OF PROCEDURE: We brought the patient to the OR, put the patient in supine position. The patient received SCDs on bilateral legs to prevent DVT. Also, the patient received 2 g of Ancef IV for prophylactic antibiotic. The patient received general anesthesia without difficulty. The abdomen was appropriately prepped and draped in routine sterile fashion. After time out, I injected the local anesthesia by using 0.5% Marcaine around the umbilicus. Then, I made a small incision just above umbilical, opened fascia and opened peritoneum under direct vision, put a Kam trocar in, connected to CO2 to create pneumoperitoneum. Flow rate is 6 liter per minute. Pressure not more than 14 mmHg. Then, we put the camera in, looked around the abdomen, showed normal finding on the liver. However, the gallbladder showed significant inflammation, gallbladder wall thickening, infection, confirmed diagnosis of acute cholecystitis. Then, we put another two 5 mm trocars on the right upper quadrant and one 11 trocar on the epigastric area. Once all trocars in, we used a grasper to hold the base of the gallbladder, put in direction to the diaphragm, another grasper to hold the pouch of the gallbladder, put the latter to try to expose the triangle of Calot, but based on the significant inflammation around the gallbladder wall, it was difficult to find exactly the cystic duct location. At this moment, we decided to use top-down technique to take down gallbladder, and once we take the half in the gallbladder, I used the Harmonic to take down the half of the gallbladder and opened the gallbladder lumen and removed multiple stones, put a bag in, and then we used the Harmonic to take down the remainder half of the gallbladder. Once we dissected near the cystic duct, I used the Endoloop to close the cystic duct and used Harmonic to take down above the cystic duct and the remainder gallbladder. Rechecked, no active bleeding, no bile leak, not any stone left behind. Then we removed the remaining gallbladder through the catch bag and then we reinserted the Kam trocar in, connected to CO2 to create pneumoperitoneum. Again looked around the abdomen, no active bleeding, no bile leak from the liver bed. Then, we put one 10 mm CAROLINA drainage near the liver bed and used 0 nylon to fix the CAROLINA on the skin and then we removed all the trocars under direct vision. No active bleeding from the trocar sites. Pneumoperitoneum was released. Then, I closed the umbilical incision, fascial layer by using #1 Vicryl [id number] x2, closed subcutaneous layer by using 2-0 Vicryl continuous running, closed skin by using 4-0 Vicryl continuous running. Closed the 11 trocar on the epigastric area, we used #1 Vicryl in closed fashion [id number] x2, closed subcutaneous layer by using 2-0 Vicryl interruptedly, closed skin by using 4-0 Vicryl interruptedly, closed another two 5 mm trocar sites skin only by using 4-0 Vicryl and then we put the dressing on. The patient tolerated the procedure well. All the instrument, needle and sponge count are correct x2. We ended the case. The patient was transferred to recovery room in stable condition. The specimen was sent to pathology. I attest to the content of the Intraoperative Record and any orders documented therein. Any exception s are noted below.
[2018-09-21] MEDS: CHOLECALCIFEROL 1,000 UNITS TAB PO SCH (16:27)
[2018-09-21] MEDS: CHECK SCOPOLAMINE PATCH PLACEMENT SCH ×2 (16:28→23:35)
[2018-09-21] MEDS: LACTATED RINGER'S 1,000 ML IV SCH ×2 (17:10→17:31)
[2018-09-21] MEDS: PSYLLIUM 58.6% POWDER PACKET PO SCH (20:40)
[2018-09-22] MEDS: PIPERACILLIN/TAZOBACTAM 3.375 GM in DEXTROSE 5% 100 ML IV SCH ×2 (01:52→09:19)
[2018-09-22] MEDS: LACTATED RINGER'S 1,000 ML IV SCH ×2 (03:31→13:14)
[2018-09-22] MEDS ORDERED: OXYCODONE/ACETAMINOPHEN 5mg/325mg TAB PO PRN (04:48)
[2018-09-22 05:50] LABS: Hemoglobin 12.4 g/dL (12.0-16.0); Mean Corpuscular Hgb Conc 33.5 g/dL (32-36); Mean Corpuscular Volume 91.1 fL (80-100); Mean Platelet Volume 9.8 fL (7.4-10.4); Platelet Count 199 K/uL (130-400); RDW Coefficient of Variation 12.6 % (11.5-14.5); Red Blood Count 4.06 M/uL (4.2-5.4); White Blood Count 7.67 K/uL (4.8-10.8)
[2018-09-22 06:25] LABS: BUN Creatinine Ratio 12.4 (10-20); Calcium 8.2 mg/dl (8.5-10.1); Creatinine Clr Calc Pharmacy 94.8 ml/min; Est GFR (African American) 102.5; Est GFR (Non-African American) 88.4; Potassium 3.5 mmol/L (3.5-5.1)
[2018-09-22] MEDS: LISINOPRIL 20 MG TAB PO SCH (07:10)
--- NOTE | 2018-09-22 07:48 | Anesthesiology Progress Note ---
Date of Service September 22, 2018 Anesthesia Post Procedure Vital Signs Vital Signs: Temp Pulse Pulse Resp BP Pulse Ox 09/22/18 03:56 36.9 C 67 18 133/77 96 09/21/18 23:01 36.9 C 78 18 149/81 H 98 09/21/18 20:03 37.0 C 80 20 155/84 H 97 09/21/18 17:08 36.7 C 50 L 18 157/99 H 98 09/21/18 16:09 36.7 C 66 18 152/92 H 98 09/21/18 14:53 36.7 C 51 L 16 143/91 H 96 09/21/18 14:23 61 20 144/95 H 96 09/21/18 13:35 51 L 16 132/92 94 09/21/18 13:25 36.2 C L 49 L 13 136/78 95 09/21/18 13:15 50 L 12 127/90 94 09/21/18 13:05 52 L 12 152/94 H 97 09/21/18 12:55 50 L 12 148/84 H 99 09/21/18 12:45 58 L 12 137/90 99 09/21/18 12:36 36.1 C L 68 15 150/90 H 100 Pain Intensity Upper Abdomen: Pain Intensity: 1 Notes Mental Status: alert / awake / arousable and participated in evaluation Patient Amnestic to Procedure: Yes Nausea / Vomiting: adequately controlled Pain: adequately controlled Airway Patency, RR, SpO2: stable & adequate BP & HR: stable & adequate Hydration State: stable & adequate Anesthetic Complications: no major complications apparent and Pt Satisfied with anesthetic care
[2018-09-22] MEDS: CHECK SCOPOLAMINE PATCH PLACEMENT SCH ×2 (09:15→15:52)
[2018-09-22] MEDS: PSYLLIUM 58.6% POWDER PACKET PO SCH ×2 (09:17→21:30)
[2018-09-22] MEDS: LISINOPRIL/HCTZ 20/25MG 1 TAB PO SCH (09:18)
[2018-09-22] MEDS: LORATADINE 10 MG TAB PO SCH (09:18)
[2018-09-22] MEDS: MULTIVITAMIN TAB PO SCH (09:18)
[2018-09-22] MEDS: ENOXAPARIN INJ 40 MG/0.4 ML SYR SQ SCH (09:19)
[2018-09-22] MEDS: CHOLECALCIFEROL 1,000 UNITS TAB PO SCH (09:32)
--- NOTE | 2018-09-22 12:04 | Hospitalist Progress Note ---
Date of Service September 22, 2018 Assessment & Plan (1) Acute calculous cholecystitis: This is a 48-year-old female who has significant past medical history of HTN, Watt who presents to [facility] ED after having a positive HIDA scan done as outpatient. HIDA Scan done 09/19/18 findings concerning for calculus cholecystitis with possible choledocholithiasis and extra hepatic ductal dilatation, pancreatic ductal prominence raises concern for distal CBD calculus at ampulla of vater. In ED patient was afebrile and hemo dynamically stable. LFTS, Lipase, CBC WNL. Gen Surgery consulted, Dr. Potts, ERCP was done, sphincterotomy performed, Lap Kiah done 09/21, DC home when drain out (2) Choledocholithiasis: ERCP done, OR yesterday for lap kiah (3) HTN (hypertension): Controlled, we will monitor (4) WATT (nonalcoholic steatohepatitis): -low fat diet along with lifestyle modifications encouraged (5) GERD (gastroesophageal reflux disease): -PRN famotidine (6) WILFRED (obstructive sleep apnea): -mild, followed outpatient sleep medicine -not treated with cpap/bipap (7) IUD (intrauterine device) in place: No issues (8) DVT prophylaxis: -SCDs, patient higher risk given morbid obesity with IUD in place -Avoid chemo prophylaxis given likely upcoming surgical procedure Disposition: D/C to home when drain pulled Follow up: PCP Dr. Mayen and Dr Potts upon discharge Subjective 48-year-old who underwent an ultrasound in June, which showed gallstones. Since then, she has had a couple of episodes of severe abdominal pain. She was referred for a biliary scan which she had earlier today which showed nonvisualization of the gallbladder consistent with acute cholecystitis. Subsequent imaging by ultrasound showed stones in the bile duct and the bile duct was dilated to 10 mm. The patient had an ERCP 09/19. See report. She had a Lap Kiah on 09/[address] Potts. ROS-No Headache, No Visual Changes, No Nausea, No Vomiting, No Fever, No Chills, No Neck Pain or Stiffness, No Chest Pain, No Palpitations, No SOB, No CHEN, No Cough, No Sputum, No Wheezing, +Mild Abdominal Pain, No Diarrhea, No H ematemesis, No Hemoptysis, No Unexpected Weight Loss, No Flank pain, No Melena, No Hematochezia, No Frequency, No Urgency, No Burning, No Hematuria, No Rashes, No Diaphoresis. Appetite is Normal, feels a lot better Physical Exam Gen-AAO x 3, NAD, Afebrile, Obese, Female, Fair, [place] and in her forties Head-NCAT, EOMI, PERRLA, Anicteric Sclera, No Posterior Pharyngeal Erythema Neck-Supple, No JVD, No Thyromegaly, No Masses, No LAD, No Bruits Lungs-Clear to Auscultation Bilaterally, No Rales, No Rhonchi, No Wheezing, No Crepitus Chest-No S4, +S1, +S2, No S3, No Murmurs, No Rubs, No Gallops, No Ectopy Abdomen-Soft, Bowel Sounds Present, Tender, +CAROLINA Drain, Obese, Non Distended, No Hepatomegaly, No Splenomegaly, No Palpable Masses, No Rebound, No Rigidity, No Guarding Musculoskeletal-Full Range of Motion Bilaterally, No CVAT Extremities-No Cyanosis, No Clubbing, No Edema Nuero-Cranial Nerves II-XII grossly intact, Motor WNL, DTRs WNL, Strength WNL, Non Focal Psych-Normal Mood Physical Exam Vital Signs (Past 24 Hours): Last Vital Signs Temp 37.0 C 09/22/18 11:32 Pulse 60 09/22/18 11:32 Resp 14 09/22/18 11:32 BP 151/83 H 09/22/18 11:32 Pulse Ox 99 09/22/18 11:32 Results & Data Laboratory Results Reviewed (1) HTN (hypertension) Hypertension type: essential hypertension Qualified Code(s): I10 - Essential (primary) hypertension (2) GERD (gastroesophageal reflux disease) Esophagitis presence: esophagitis presence not specified Qualified Code(s): K21.9 - Gastro-esophageal reflux disease without esophagitis
--- NOTE | 2018-09-22 13:42 | Surgery Progress Note ---
Date of Service September 22, 2018 POD 1 S/P dash dupont pt is doing fine, no nausea, no vomiting, but bilt left edema, no leg pain, Assessment & Plan (1) Acute calculous cholecystitis: 48 year-old female who was having outpatient HIDA scan today for gallbladder evaluation in the setting of two previous episodes of "gallbladder attacks" with abdominal pain, nausea, vomiting, and bloating. HIDA showed evidence of acute cholecystitis with nonvisualization of the gallbladder after 90 minutes and Morhpine administration. Emergency room work-up included labs which were completely unremarkable including cbc, bmp, LFTs, t. bili, and lipase. Abdominal ultrasound however shows dilated CBD at 10 mm (5 mm previously) with shadowing focus in the mid common bile duct consistent with choledochlithiasis as well as prominence of the pancreatic duct at the pancreatic neck. Abdomen is soft, nondistended, tender in the RUQ on deep palpation. Negative Campuzano's sign but given IV pain medication in ER. Hemodynamically stable, afebrile Plan: Discussed with patient that her two imaging studies and her labs are discordant with one another. There is concern for possible choledocholithiasis on today's ultrasound with dilated CBD at 10 mm (5 mm on previous US in June). Therefore given these findings, would recommend further evaluation of the biliary system with MRCP prior to cholecystectomy. Discussed she may need ERCP prior to cholecystectomy depending on further studies. Would recommend hospitalist admission with GI consult and MRCP for further evaluation Recommend IV abx for cholecystitis IV fluids and pain management as needed Repeat am labs including cbc, bmp, LFTs, and lipase NPO after midnight if diet advanced later this evening If further work-up negative possible cholecystectomy tomorrow with Dr. Potts. I reviewed pt's H/P with pt, Plan, I recommend to do laparosocpic cholecystectomy, possible open, on 10AM 09/21/2018, D/W benefits, risks and alternatives of the surgery, the risks - infection, bleeding, injury CBD, bowel, DVT, , pt understood, she agrees with the surgery, I answered all questions, NPO after MN on 09/20/2018 09/20/2018, 10:35AM doing fine, D/W above plan, benefits, risks and alternatives of the surgery, pt agrees with the surgery, she signed consent, I answered all questions, 09/22/20181:41PM doing fine, doppler studt to R/O DVT stop IV fluid will F/U (2) Choledocholithiasis: Ultrasound showing dilated CBD at 10 mm with shadowing focus Prominence of pancreatic duct concerning for distal CBD stone?? HIDA scan however showed radiotracer uptake in small bowel Plan as above Discussed patient with Dr. Potts who agrees with above Subjective Gastrointestinal: + abdominal pain and + bloating; no belching, no nausea, no vomiting, no coffee ground emesis, no hematemesis, no change in stools, no constipation, no diarrhea/loose stools, no blood in stools and no melena Physical Exam Vital Signs (Past 24 Hours): Last Vital Signs Temp 37.0 C 09/22/18 11:32 Pulse 60 09/22/18 11:32 Resp 14 09/22/18 11:32 BP 151/83 H 09/22/18 11:32 Pulse Ox 99 09/22/18 11:32 Constitutional: WD/WN, vitals as above Neck: trachea midline, no thyromegaly Respiratory: normal respiratory effort, lungs clear to auscultation normal respiratory effort Cardiovascular: RRR, no murmur, no edema Gastrointestinal (Abdomen): Percussion/Palpation: abdomen soft no distend, cll incisions intact Musculoskeletal: some swelling on bilt left lower legs, no tenderness Neurologic: awake Psychiatric: Orientation: alert and oriented x 3
--- NOTE | 2018-09-22 15:14 | Ultrasound Report ---
US venous doppler LE BI HISTORY: Pain. Edema. R/O DVT COMPARISON STUDY: None. FINDINGS: There is normal compressibility, flow, and augmentation within the bilateral lower extremit y deep venous systems. IMPRESSION: No DVT within the right or left lower extremity. The above report was generated using voice recognition software. It may contain grammatical, syntax or spelling errors. Electronically signed by: Martin Bass M.D. 09/22/2018 3:13 PM
--- NOTE | 2018-09-22 17:13 | Progress Note ---
DATE: 09/22/2018 SUBJECTIVE: The patient underwent a laparoscopic cholecystectomy yesterday by Dr. Potts. She had an acutely inflamed and edematous gallbladder that was removed in two stages. She had multiple stones found. Should have a CAROLINA drain placed following the procedure, but today, she is actually feeling quite well. PHYSICAL EXAMINATION: VITAL SIGNS: Blood pressure is up a little bit 145/89. ABDOMEN: Soft. There are some bandages from the laparoscopic ports and a CAROLINA in the right upper quadrant with a little bit of serosanguineous drainage. The patient has a normal liver profile following her ERCP on Saturday. IMPRESSION: The patient had acute cholecystitis with gallbladder removal yesterday. She is now postop day 1 and doing well. Plan on signing off at this point.
[2018-09-23 08:28] LABS: Bilirubin Direct 0.1 mg/dl (0-0.2); Bilirubin,Total 0.5 mg/dl (0.2-1)
[2018-09-23] MEDS: LISINOPRIL/HCTZ 20/25MG 1 TAB PO SCH (08:49)
[2018-09-23] MEDS: ENOXAPARIN INJ 40 MG/0.4 ML SYR SQ SCH (08:49)
[2018-09-23] MEDS: CHOLECALCIFEROL 1,000 UNITS TAB PO SCH (08:49)
[2018-09-23] MEDS: MULTIVITAMIN TAB PO SCH (08:49)
[2018-09-23] MEDS: LORATADINE 10 MG TAB PO SCH (08:49)
[2018-09-23] MEDS: PSYLLIUM 58.6% POWDER PACKET PO SCH (08:49)
--- NOTE | 2018-09-23 10:04 | Surgery Progress Note ---
Date of Service September 23, 2018 Assessment & Plan (1) Acute calculous cholecystitis: POD # 2 s/p laparoscopic cholecystectomy, POD # 4 s/p ERCP with biliary sphincterotomy -vitals stable, afebrile - pain controlled post op - no n/v, tolerating diet - nina with serosanguineous output - bilateral LE edema, mildly improved , US with NO DVT Plan: Okay from surgical standpoint for discharge Discharge home with Nina drain F/u surgical office Saturday09/29/18 Rx for Percocet prn pain Discharge instructions reviewed Dr. Potts has seen pt, agrees with above Subjective feeling well, having some right sided(flank) pain no n/v, tolerating diet ambulating hallway no chest pain/sob urinating without difficulty no bowel movement yet Physical Exam Vital Signs (Past 24 Hours): Last Vital Signs Temp 37.2 C 09/23/18 07:29 Pulse 61 09/23/18 07:29 Resp 16 09/23/18 07:29 BP 162/90 H 09/23/18 07:29 Pulse Ox 92 09/23/18 07:29 Constitutional: WD/WN, vitals as above no acute distress Respiratory: normal respiratory effort Gastrointestinal (Abdomen): Inspection/Auscultation: abdomen normal to inspection and + abdominal surgical drain present (serosanginueous output); abdomen not distended Percussion/Palpation: + abdomen tender (RUQ, right flank, incision sites) and abdomen soft; no guarding and abdomen not rigid Skin: no rashes, warm and dry + incision (clean/dry covered with dressings) Psychiatric: A+Ox3, euthymic affect Results & Data Laboratory Results 09/23/18 09/23/18 09/23/18 Range/Units 12:12 07:48 07:10 POC Glucose 106 H 82 (70-99) Total Bilirubin 0.5 (0.2-1) mg/dl Direct Bilirubin 0.1 (0-0.2) mg/dl
--- NOTE | 2018-09-23 12:42 | Discharge Summary ---
Date of Service September 23, 2018 Admission HPI Per Admitting Provider This is a 48-year-old female who has significant past medical history of HTN, Watt, GERD, mild WILFRED who presents to [facility] ED after having a positive HIDA scan done as outpatient. Patient symptoms initially began in June after having fried rice. Developed stabbing epigastric pain that radiated to back with associated nausea and emesis. Was alleviated with rest and time approximately 12 hours. "Certain foods always bother me and I usually take ranitidine prior to eating them, onion into particular." She follows with [facility] and had outpatient ultrasound done in June that was significant for multiple gallstones without evidence of cholecystitis. Approximately 1 week ago she had a second attack after eating jambalaya. Symptoms similar, severe epigastric pain radiating to back; however, this lasted approximately 24 hours before remitting. Unable to eat or drink anything x 1 day. She was then ordered a HIDA scan. HIDA scan today revealed nonvisualization of gallbladder at 90 minutes even after morphine administration consistent with acute cholecystitis. She was then referred to ED. Currently abdominal pain is minimal. Pain was mimicked by HIDA scan, but not as severe. She denies any fever, chills, sweats, lightheadedness, dizziness, chest pain, shortness of breath, nausea, vomiting, diarrhea, change in bowel or bladder habits, melena, hematochezia. Back in June she was having difficulty with constipation prior to her, "attacks." +FH maternal grandmother of gall bladder problems. Prior abdominal surgeries include . Admission Exam Per Admitting Provider Gen: WD/WN, F, NAD, sitting up in bed, pleasant, conversing easily Head: Normocephalic, Atraumatic Eyes: Sclera normal, no conjunctival injection, PERRLA, EOMI ENT: Gross hearing intact, normal pharynx, mucous membranes moist Neck: supple, no adenopathy, No JVD, no bruit, Resp: Clear to auscultation b/l, no wheeze, rales, rhonchi. Normal insp/exp effort, no accessory muscle use CV: Regular rate, regular rhythm, no murmur, rub, gallop, or ectopy Abd: +obese abdomen, +BS x 4, soft, nontender, no rebound, guarding Musculoskeletal: moves extremities active rom x 4, strength intact, good folded cloth taper strength Extremities: No edema bilaterally Skin: warm, moist, no rash, negative turgor, cap refill < 2sec Neuro: Alert and oriented x 3, speech normal, good mood/affect, cran nerve 2-12 intact grossly : deferred Principal Diagnosis Acute cholecystitis Discharge Exam ROS-No Headache, No Visual Changes, No Nausea, No Vomiting, No Fever, No Chills, No Neck Pain or Stiffness, No Chest Pain, No Palpitations, No SOB, No CHEN, No Cough, No Sputum, No Wheezing, No Abdominal Pain, No Diarrhea, No Hematemesis, No Hemoptysis, No Unexpected Weight Loss, No Flank pain, No Melena, No Hematochezia, No Frequency, No Urgency, No Burning, No Hematuria, No Rashes, No Diaphoresis. Appetite is Normal Physical Exam Gen-AAO x 3, NAD, Afebrile, Obese Head-NCAT, EOMI, PERRLA, Anicteric Sclera, No Posterior Pharyngeal Erythema Neck-Supple, No JVD, No Thyromegaly, No Masses, No LAD, No Bruits Lungs-Clear to Auscultation Bilaterally, No Rales, No Rhonchi, No Wheezing, No Crepitus Chest-No S4, +S1, +S2, No S3, No Murmurs, No Rubs, No Gallops, No Ectopy Abdomen-Soft, Bowel Sounds Present, sore, Non Distended, No Hepatomegaly, No Splenomegaly, No Palpable Masses, No Rebound, No Rigidity, No Guarding Musculoskeletal-Full Range of Motion Bilaterally, No CVAT Extremities-No Cyanosis, No Clubbing, No Edema Nuero-Cranial Nerves II-XII grossly intact, Motor WNL, DTRs WNL, Strength WNL, Non Focal Psych-Normal Mood Discharge Data Allergies Allergy/AdvReac Type Severity Reaction Status Date / Time procaine Allergy Unknown Verified 09/19/18 11:22 lidocaine Allergy Unknown Unverified 09/19/18 11:22 Consultations 09/19/18 14:47 Consult General Surgery Stat 09/19/18 14:51 ED Decision to Admit Stat 09/19/18 15:25 Consult Gastroenterology Routine 09/19/18 18:06 Consult General Surgery Routine Procedures Performed Operation Date: 09/19/18 13:05 Actual Procedures p Endoscopic Retrograde Cholangiopancreatography,sphincterotomy(Not Applicable) - Al Louis Operation Date: 09/21/18 11:00 Actual Procedures p Laparoscopic Cholecystectomy(Not Applicable) - Eugenia Potts MD Current Diagnoses Obstructive sleep apnea (adult) (pediatric) (09/19/18) Essential (primary) hypertension (09/19/18) Gastro-esophageal reflux disease without esophagitis (09/19/18) Nonalcoholic steatohepatitis (WATT) (09/19/18) Calculus of gallbladder with acute cholecystitis without obstruction (09/19/18) Calculus of bile duct without cholangitis or cholecystitis without obstruction (09/19/18) Encounter for other preprocedural examination (09/19/18) Presence of (intrauterine) contraceptive device (09/19/18) Allergies procaine Allergy (Unknown, Verified 09/19/18 11:22) lidocaine Allergy (Unverified 09/19/18 11:22) Unknown Height/Weight/Isolation Height 5 ft 2 in Weight 95.753 kg Chemistry 09/22/18 05:31 Sodium 140 Potassium 3.5 Chloride 107 Carbon Dioxide 29 Anion Gap 4.0 BUN 10 Creatinine 0.80 Glucose 113 H Ordered Studies 09/19/18 12:09 US abdomen limited Stat 09/19/18 17:00 FL ERCP biliary ductal Routine 09/22/18 13:37 US venous doppler LE BI Stat Hospital Course (1) Acute calculous cholecystitis: This is a 48-year-old female who has significant past medical history of HTN, Watt who presents to [facility] ED after having a positive HIDA scan done as outpatient. HIDA Scan done 09/19/18 findings concerning for calculus cholecystitis with possible choledocholithiasis and extra hepatic ductal dilatation, pancreatic ductal prominence raises concern for distal CBD calculus at ampulla of vater. In ED patient was afebrile and hemo dynamically stable. LFTS, Lipase, CBC WNL. Gen Surgery consulted, Dr. Potts, ERCP was done, sphincterotomy performed, Lap Rosa done 09/21, DC home today and f/u c Dr Potts as directed (2) Choledocholithiasis: ERCP done, s/p lap rosa (3) HTN (hypertension): BP up today, Will start norvasc 5 and DC her on that, f/u c PCP for BP control (4) WATT (nonalcoholic steatohepatitis): -low fat diet along with lifestyle modifications encouraged (5) GERD (gastroesophageal reflux disease): -PRN famotidine (6) WILFRED (obstructive sleep apnea): -mild, followed outpatient sleep medicine -not treated with cpap/bipap (7) IUD (intrauterine device) in place: No issues (8) DVT prophylaxis: -SCDs, patient higher risk given morbid obesity with IUD in place -Avoid chemo prophylaxis given likely upcoming surgical procedure Disposition: D/C to home today Follow up: PCP Dr. Mayen and Dr Potts upon discharge Total Time Total Time Spent Total Time Spent (In Minutes): 45 mins Total Time Includes: Examination of the Patient, Discharge Planning, Medication Reconciliation and Communication With Other Providers Discharge Plan Discharge Items Patient Disposition: Home - Self-Care Reason For Visit: CHOLECYSTITIS Discharge Diagnosis: Acute Cholecystitis HTN Discharge Goals: Improve disease control and Improve nutritional status Specific Goals: BP management Activity: Resume your previous activity Lifting: Gradually increase as tolerated and Wait until after follow-up appointment Bathing: No limitations and Keep incision dry Sexual Activity: Wait until after follow-up appointment Exercise/Sports: Wait until after follow-up appointment Driving/Machine Use: No limitations Weightbearing: Left weightbearing and Right weightbearing Non-emergency contact: Primary Care Provider and Surgeon Call non-emergency contact if: you have any medication questions and your symptoms worsen Follow-up/Referrals: Jhoan Mayen MD [Primary Care Provider] - 09/29/18 11:00 am Eugenia Potts MD [Physician] - (Follow up as directed) Diet: Regular Addtl Provider Instructions: No heavy lifting over 20 pounds for 3-4 weeks No strenuous activity until cleared by surgeon No submerging incisions underwater for 2 weeks (no swimming, bathing, or hot tubs) No driving while taking pain medication or until you are pain free You may shower, gently clean incisions with soap and water. Pat dry. Sponge bath around drain. Leave steri strips on for 1 week and then remove. Walking and light activity is encouraged daily to prevent blood clots from forming in your legs You will be given prescription for narcotic pain medication (Percocet) as needed for moderate to severe pain. Take as directed. This medication may cause drowsiness or constipation. May take extra strength Tylenol or Ibuprofen as needed for mild pain -May take 600 mg of Ibuprofen every 6 hours as needed - Avoid taking Tylenol while taking Percocet as Percocet has Tylenol in it To avoid constipation: Drink plenty of fluids daily, avoid foods that constipate, daily walking. May take OTC stool softener (Colace) daily while taking pain medication. If those measures do not work, may take Miralax or Milk of Magnesia. Record drain output daily and color. Bring record with you to office on Saturday (09/29/18). Call surgical office at [phone] to make an appointment on Saturday. Prescriptions: New oxycodone-acetaminophen 5-325 mg tablet 1 tab PO Q4H PRN (Reason: pain) Qty: 18 RF: 0 sennosides-docusate sodium [Senna with Docusate Sodium] 8.6-50 mg tablet 2 tab PO HS PRN (Reason: constipation) Qty: 20 RF: 0 amlodipine [Norvasc] 5 mg tablet 5 mg PO DAILY Qty: 30 RF: 0 Continued multivitamin Tablet 1 tab PO DAILY RF: 0 Mirena 20 mcg/24 hours (5 yrs) 52 mg Intrauterine Device 20 mcg INTRAUTERINE UD RF: 0 lisinopril-hydrochlorothiazide 20-25 mg Tablet 1 tab PO DAILY RF: 0 loratadine [Claritin] 10 mg Tablet 10 mg PO DAILY RF: 0 cholecalciferol (vitamin D3) 1,000 unit Tablet 1,000 unit PO DAILY RF: 0 Benefiber Clear SF (dextrin) 3 gram/3.5 gram Powder In Packet 1.5 g PO BID RF: 0 Stand-Alone Forms: [facility]charge Orders: Discharge Order (Routine); Ordered 09/23/18 Ordered By: Yoel Veronica Admission Data Admit Date/Time: 09/19/18 15:25 Attending Provider: Yoel Veronica Admit Provider: Bobby Oneil Primary Care Provider: Jhoan Mayen Other Providers: Eugenia Potts ; Al Louis ; Jesse Kapoor ; Bobby Oneil Service: Medical Other Pending Studies at Discharge: Yes (Gallbladder pathology, will be reviewed at follow-up visit)
== END 2018-09-23 14:10 | disposition home or self-care (01) | DRG 419 ==
LOC: ED 10:22 → 3N 15:25
DX: K21.9 Gastro-esophageal reflux disease without esophagitis; Z79.899 Other long term (current) drug therapy; G47.33 Obstructive sleep apnea (adult) (pediatric); Z83.79 Family history of other diseases of the digestive system; K80.62 Calculus of gallbladder and bile duct with acute cholecystitis without obstruction; Z88.4 Allergy status to anesthetic agent; Z87.891 Personal history of nicotine dependence; Z68.38 Body mass index [BMI] 38.0-38.9, adult; K75.81 Nonalcoholic steatohepatitis (NASH); Z97.5 Presence of (intrauterine) contraceptive device; E66.01 Morbid (severe) obesity due to excess calories; I10 Essential (primary) hypertension

== ENCOUNTER 2019-11-10 19:58 | Observation (INO) ==
--- OUTSIDE RECORDS SUMMARY | 2019-11-10 20:00 | External Medical Summary | Continuity of Care Document ---
:1970 Author Name Jagruti Cobos Address Unavailable Unavailable , Care Team Providers Name Role Phone NonMNPG M.Roseline Unavailable [email or web address] Ruby Mayen Unavailable Unavailable Problems Active medical history not documented Allergies and Adverse Reactions Allergy history not documented Medications Medications not documented Procedures Procedures not documented Immunizations Immunizations not documented Plan of Treatment Planned Observations Planned Goals not documented Results No Known Results Results not documented
--- OUTSIDE RECORDS SUMMARY | 2019-11-10 20:00 | External Medical Summary | Continuity of Care Document ---
:1970 Author Name Jagruti Cobos Address Unavailable Unavailable , Care Team Providers Name Role Phone NonMNPG M.Roseline Unavailable [email or web address] Ruby Mayen Unavailable Unavailable Problems Active medical history not documented Allergies and Adverse Reactions Allergy history not documented Medications Medications not documented Procedures Procedures not documented Immunizations Immunizations not documented Plan of Treatment Planned Observations Planned Goals not documented Results No Known Results Results not documented
[2019-11-10] MEDS ORDERED: DiphenhydrAMINE HCL 50 MG/ML VIAL IV STA (20:20)
[2019-11-10] MEDS ORDERED: SODIUM CHLORIDE 0.9% 250 ML IV PRN (20:20)
[2019-11-10] MEDS ORDERED: methylPREDNISolone 125 MG/2 ML VIAL IV STA (20:20)
[2019-11-10] MEDS ORDERED: FAMOTIDINE 20MG/5ML IV PUSH IV STA (20:20)
--- NOTE | 2019-11-10 20:28 | Emergency Department Note ---
History of Present Illness General Chief complaint: Allergic Reaction Stated complaint: EYES SWOLLEN SHUT, ALLERGIC REACTION Time Seen by Provider: 11/10/19 20:05 Source: patient History of Present Illness Provider complaint: Swelling to her head Onset (ago): day(s) (Yesterday morning) Location: head and eyes Severity: moderate Pain Consistency: + constant Quality: + other (Itching) Relieved By: + none Associated symptoms: + fever/chills; no chest pain, no cough, no headaches, no nausea/vomiting and no shortness of breath This is a 49-year-old female who presents with swelling to her face starting yesterday morning. The patient called her doctor and discussed her symptoms with him. She was told to take Benadryl and given a prescription for prednisone which she started today. She also mentioned that she had a fever of 103.1 yesterday and he told her that she might have COVID and that she should self isolate. She denies, however, any symptoms consistent with COVID other than fever. She has had no cough, malaise, myalgias, shortness of breath, chest pain, lost taste or smell or any known exposure or recent travel. She has had no abdominal pain or vomiting. She denies any urinary symptoms. She denies eating any new foods or taking any new medications other than the Benadryl and prednisone. She has had no new soaps or detergents. She is on lisinopril for high blood pressure and has been on it for a year and a half. She also complains of a rash that started on her upper chest and is now diffuse throughout her body. She states the rash is very itchy. She denies any swelling or tightness to her throat. She has no tongue swelling. She last took her lisinopril this morning. Home Medications Home Medications Medication Instructions Recorded Confirmed Type Benefiber Clear SF (dextrin) 1.5 g PO BID 09/19/18 11/10/19 History Mirena 20 mcg INTRAUTERINE DIRECTED 09/19/18 11/10/19 History cholecalciferol (vitamin D3) 1,000 unit PO DAILY 09/19/18 11/10/19 History lisinopril-hydrochlorothiazide 1 tab PO DAILY 09/19/18 11/10/19 History loratadine [Claritin] 10 mg PO DAILY PRN 09/19/18 11/10/19 History multivitamin 1 tab PO DAILY 09/19/18 11/10/19 History amlodipine [Norvasc] 5 mg PO DAILY #30 tab 09/23/18 11/10/19 Rx Allergies Allergy/AdvReac Type Severity Reaction Status Date / Time lidocaine Allergy Unknown Unknown Verified 11/10/19 20:27 procaine Allergy Unknown Unknown Verified 11/10/19 20:27 Past Med/Surg History Medical History GERD (gastroesophageal reflux disease) HTN (hypertension) IUD (intrauterine device) in place mirena BRYSON (nonalcoholic steatohepatitis) Seasonal allergies Surgical History History of ear, nose, and throat (ENT) surgery Previous section S/P ERCP Family History Grandmother (Maternal) Cholecystitis Mother T2DM (type 2 diabetes mellitus) Ovarian cancer Father Kidney malignancy Social History Preferred Language: Hong Konger Communication Ability: Effective Travel Information Center Supervisor Required: No Beliefs That Will Affect Care: None marital status: Current Living Situation: Spouse Feels Safe at Home: Yes Smoking Status: Never smoker Tobacco Type: cigarettes ; Cigarettes Per Day: 1 PPD x 15 years, Quit 2009 ; Number of Years Since Quit: 8 ; Hx Alcohol Use: Yes Alcohol type: wine Hx Substance Use: No Review of Systems See HPI for pertinent positives & negatives. and A total of 10 systems reviewed and were otherwise negative Physical Exam Vital Signs Vital Signs - 24 hr 11/10/19 20:01 11/10/19 20:38 11/10/19 20:47 Temperature 36.7 C Temperature Source Oral Pulse Rate 93 H Pulse Rhythm Pulse Strength Respiratory Rate 20 Respiratory Effort / Characteristics Non-Labored Non-Labored Respiratory Depth Normal Normal Blood Pressure 140/92 Blood Pressure Mean 108 Blood Pressure Position Sitting Pulse Oximetry 93 97 Oxygen Delivery Method Room Air Room Air Room Air Sepsis Recent Fever Within 48 Hours No Sepsis Action Taken by Nursing No Action Required 11/10/19 21:58 11/10/19 22:05 11/10/19 22:10 Temperature 37.1 C 37.3 C 37.3 C Temperature Source Oral Oral Oral Pulse Rate 87 81 81 Pulse Rhythm Regular Pulse Strength Normal Respiratory Rate 18 17 17 Respiratory Effort / Characteristics Respiratory Depth Blood Pressure 135/102 H 130/101 H 126/85 Blood Pressure Mean 113 110 98 Blood Pressure Position Pulse Oximetry 94 95 95 Oxygen Delivery Method Sepsis Recent Fever Within 48 Hours Sepsis Action Taken by Nursing 11/10/19 22:15 11/10/19 22:30 Temperature 37.4 C 37.0 C Temperature Source Oral Oral Pulse Rate 80 80 Pulse Rhythm Pulse Strength Respiratory Rate 17 17 Respiratory Effort / Characteristics Respiratory Depth Blood Pressure 124/96 134/87 Blood Pressure Mean 105 102 Blood Pressure Position Pulse Oximetry 95 95 Oxygen Delivery Method Sepsis Recent Fever Within 48 Hours Sepsis Action Taken by Nursing Constitutional: Vital signs reviewed. Eyes: Significant angioedema to the upper face. The patient is barely able to open her right eye. ENT: Pharynx is clear without erythema or exudate. Mucous membranes are moist. Neck supple without meningeal signs. Respiratory: Clear to auscultation bilaterally. Breath sounds are equal bilaterally. No wheezing or stridor. Cardiovascular: Regular rate and rhythm. No rubs or gallops. GI: Soft, nondistended and nontender. Bowel sounds are present. Musculoskeletal: No peripheral edema. No lower extremity tenderness. Integumentary: Diffuse erythematous plaques and papules throughout the trunk and extremities. They reg easily. No petechiae or purpura. Neurological: The patient is awake and alert. No focal deficits. Psychiatric: Normal affect. Not anxious appearing. Course Administered Medications Discontinued Medications Diphenhydramine HCl (Benadryl) 50 mg IV NOW STA Stop: 11/10/19 20:21 Last Admin: 11/10/19 20:33 Dose: 50 mg Documented by: [id number] Famotidine (Pepcid 20mg Iv Push) 20 mg IV ONE STA Stop: 11/10/19 20:21 Last Admin: 11/10/19 20:33 Dose: 20 mg Documented by: [id number] Methylprednisolone (Solumedrol) 125 mg IV NOW STA Stop: 11/10/19 20:21 Last Admin: 11/10/19 20:33 Dose: 125 mg Documented by: [id number] Medical Decision Making Differential Diagnosis BOYD inhibitor induced angioedema, acute allergic reaction, urticaria, pneumonia, UTI, influenza Medical Records Attestation: I reviewed the patient's medical records. I did perform a limited focused review of portions of the patient's old chart on the electronic medical record. The patient underwent cholecystectomy earlier this year. Home Medications Current Medication List: was personally reviewed by me Laboratory Data Attestation: I reviewed the patient's lab results. Result diagrams: 11/10/19 20:10 11/10/19 20:10 Lab Results 11/10/19 11/10/19 11/10/19 Range/Units 20:10 20:10 20:10 WBC 7.92 (4.8-10.8) K/uL RBC 4.98 (4.2-5.4) M/uL Hgb 15.6 (12.0-16.0) g/dL Hct 44.8 (37-47) % MCV 90.0 (80-100) fL MCH 31.3 (25-34) pg MCHC 34.8 (32-36) g/dL RDW Std Deviation 40.6 (36.4-46.3) fL RDW Coeff of Kecia 12.4 (11.5-14.5) % Plt Count 216 (130-400) K/uL MPV 10.4 (7.4-10.4) fL Immature Gran % (Auto) 0.3 % Neut % (Auto) 82.6 % Lymph % (Auto) 11.0 % [place] % (Auto) 3.7 % Eos % (Auto) 2.1 % Baso % (Auto) 0.3 % Immature Gran # (Auto) 0.02 (0.00-0.02) K/uL Neut # (Auto) 6.55 H (1.4-6.5) K/uL Lymph # (Auto) 0.87 L (1.2-3.4) K/uL [place] # (Auto) 0.29 (0.11-0.59) K/uL Eos # (Auto) 0.17 (0-0.5) K/uL Baso # (Auto) 0.02 (0-0.2) K/uL PT 11.0 (9.0-12.0) Seconds INR 1.0 (0.9-1.1) APTT 28.5 (21.0-31.0) Seconds PTT Ratio 1.0 Sodium 139 (136-145) mmol/L Potassium 3.8 (3.5-5.1) mmol/L Chloride 105 (98-107) mmol/L Carbon Dioxide 27 (21-32) mmol/L Anion Gap 7.0 (3-11) BUN 14 (7-18) mg/dl Creatinine 0.88 (0.6-1.2) mg/dl Est Cr Clr Drug Dosing 87.6 ml/min Est GFR ( Amer) 90.7 Est GFR (Non-Af Amer) 78.2 BUN/Creatinine Ratio 16.2 (10-20) Glucose 158 H (70-99) mg/dl Calcium 10.2 H (8.5-10.1) mg/dl Total Bilirubin 0.6 (0.2-1) mg/dl AST 34 (15-37) U/L ALT 87 H (12-78) U/L Alkaline Phosphatase 78 (45-117) U/L Total Protein 8.1 (6.4-8.2) gm/dl Albumin 4.0 (3.4-5.0) gm/dl Globulin 4.1 H (2.5-4.0) gm/dl Albumin/Globulin Ratio 1.0 (0.9-2) Influenza Type A (PCR) (Neg) Influenza Type B (PCR) (Neg) 11/10/19 Range/Units 20:50 WBC (4.8-10.8) K/uL RBC (4.2-5.4) M/uL Hgb (12.0-16.0) g/dL Hct (37-47) % MCV (80-100) fL MCH (25-34) pg MCHC (32-36) g/dL RDW Std Deviation (36.4-46.3) fL RDW Coeff of Kecia (11.5-14.5) % Plt Count (130-400) K/uL MPV (7.4-10.4) fL Immature Gran % (Auto) % Neut % (Auto) % Lymph % (Auto) % [place] % (Auto) % Eos % (Auto) % Baso % (Auto) % Immature Gran # (Auto) (0.00-0.02) K/uL Neut # (Auto) (1.4-6.5) K/uL Lymph # (Auto) (1.2-3.4) K/uL [place] # (Auto) (0.11-0.59) K/uL Eos # (Auto) (0-0.5) K/uL Baso # (Auto) (0-0.2) K/uL PT (9.0-12.0) Seconds INR (0.9-1.1) APTT (21.0-31.0) Seconds PTT Ratio Sodium (136-145) mmol/L Potassium (3.5-5.1) mmol/L Chloride (98-107) mmol/L Carbon Dioxide (21-32) mmol/L Anion Gap (3-11) BUN (7-18) mg/dl Creatinine (0.6-1.2) mg/dl Est Cr Clr Drug Dosing ml/min Est GFR ( Amer) Est GFR (Non-Af Amer) BUN/Creatinine Ratio (10-20) Glucose (70-99) mg/dl Calcium (8.5-10.1) mg/dl Total Bilirubin (0.2-1) mg/dl AST (15-37) U/L ALT (12-78) U/L Alkaline Phosphatase (45-117) U/L Total Protein (6.4-8.2) gm/dl Albumin (3.4-5.0) gm/dl Globulin (2.5-4.0) gm/dl Albumin/Globulin Ratio (0.9-2) Influenza Type A (PCR) Neg for Influ A (Neg) Influenza Type B (PCR) Neg for Influ B (Neg) Imaging Data Radiologist's Impression: XR chest 1V portable CLINICAL HISTORY: fever eval for pna dyspnea. Chest pain. COMPARISON STUDY: 09/19/2018 FINDINGS: The bones soft tissues and hemidiaphragms are normal. The cardiomediastinal silhouette is normal. The lungs are clear. The pulmonary vasculature is normal. IMPRESSION: Negative chest. ACT 112: Negative or not required by law. The above report was generated using voice recognition software. It may contain grammatical, syntax or spelling errors. Electronically signed by: Martin Bass M.D. 11/10/2019 10:40 PM Blood Pressure Blood Pressure Findings: Elevated blood pressure Blood Pressure Disposition: Referred to patients primary care provider LUCI Narrative I did evaluate the patient as noted above. The patient is presenting with urticaria and angioedema. She is on lisinopril. 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 IV access was established. I did treat her with IV Solu- Medrol, Pepcid and Benadryl. She was also given fresh frozen plasma 2 units IV after informed blood consent was obtained. Patient was placed on a continuous quality assurance monitor chassis. I did order and personally reviewed the images of the patient's chest x-ray as described above. There is no evidence of pneumonia. I did order a urine analysis. This is currently pending. Blood cultures were ordered. I did order and review the patient's blood work as noted in the electronic medical record. Her white blood cell count is not elevated. She is not anemic. Flu PCR is negative. I did reassess the patient. She is feeling better. The swelling has come down although her eyes are still quite swollen. She has no airway involvement at this time. I did recommend hospitalization for further care and evaluation. Her urine is currently pending and she stated that she had a COVID-19 test this morning. I did discuss the case with the hospitalist and case specialist. Impression & Plan Angioedema, Urticaria, Fever Discharge Plan Visit Data Chief Complaint: Allergic Reaction Stated Complaint: EYES SWOLLEN SHUT, ALLERGIC REACTION ED Provider: Eugene Claros Discharge Problem: Angioedema, Urticaria, Fever Patient Disposition: Being Evaluated by Hospitalist Condition: Good Forms Stand Alone Forms: My [facility] [employer] Prescriptions Prescriptions: No Action multivitamin Tablet 1 tab PO DAILY RF: 0 Mirena 20 mcg/24 hours (5 yrs) 52 mg Intrauterine Device 20 mcg INTRAUTERINE DIRECTED RF: 0 lisinopril-hydrochlorothiazide 20-25 mg Tablet 1 tab PO DAILY RF: 0 loratadine [Claritin] 10 mg Tablet 10 mg PO DAILY PRN (Reason: Allergy Symptoms) RF: 0 cholecalciferol (vitamin D3) 1,000 unit Tablet 1,000 unit PO DAILY RF: 0 Benefiber Clear SF (dextrin) 3 gram/3.5 gram Powder In Packet 1.5 g PO BID RF: 0 amlodipine [Norvasc] 5 mg tablet 5 mg PO DAILY Qty: 30 RF: 0 Referrals Referrals: Jhoan Mayen MD [Primary Care Provider] - Discharge Problem: Angioedema Qualifiers: Encounter type: initial encounter Qualified Code(s): T78.3XXA - Angioneurotic edema, initial encounter Fever Qualifiers: Fever type: unspecified Qualified Code(s): R50.9 - Fever, unspecified
[2019-11-10 20:33] LABS: Basophils # (auto) 0.02 K/uL (0-0.2); Basophils % (auto) 0.3 %; Eosinophils # (auto) 0.17 K/uL (0-0.5); Eosinophils % (auto) 2.1 %; Hematocrit (blood only) 44.8 % (37-47); Hemoglobin 15.6 g/dL (12.0-16.0); Immature Granulocytes # (auto) 0.02 K/uL (0.00-0.02); Immature Granulocytes % (auto) 0.3 %; Lymphocytes # (auto) 0.87 K/uL (1.2-3.4); Mean Corpuscular Hemoglobin 31.3 pg (25-34); Mean Corpuscular Hgb Conc 34.8 g/dL (32-36); Mean Platelet Volume 10.4 fL (7.4-10.4); Monocytes # (auto) 0.29 K/uL (0.11-0.59); Monocytes % (auto) 3.7 %; Neutrophils # (auto) 6.55 K/uL (1.4-6.5); Neutrophils % (auto) 82.6 %; Platelet Count 216 K/uL (130-400); RDW Coefficient of Variation 12.4 % (11.5-14.5); RDW Standard Deviation 40.6 fL (36.4-46.3); Red Blood Count 4.98 M/uL (4.2-5.4); White Blood Count 7.92 K/uL (4.8-10.8)
[2019-11-10 20:46] LABS: Partial Thromboplastin Time 28.5 Seconds (21.0-31.0)
[2019-11-10 20:49] LABS: BUN Creatinine Ratio 16.2 (10-20); Calcium 10.2 mg/dl (8.5-10.1); Creatinine Clr Calc Pharmacy 87.6 ml/min; Est GFR (African American) 90.7; Est GFR (Non-African American) 78.2; Potassium 3.8 mmol/L (3.5-5.1)
[2019-11-10 20:52] LABS: Bilirubin,Total 0.6 mg/dl (0.2-1); Globulin 4.1 gm/dl (2.5-4.0); Total Protein 8.1 gm/dl (6.4-8.2)
[2019-11-10 21:34] LABS: Influenza A virus by PCR Neg for Influ A (Neg); Influenza B virus by PCR Neg for Influ B (Neg)
--- NOTE | 2019-11-10 22:42 | XRay Report ---
XR chest 1V portable CLINICAL HISTORY: fever eval for pna dyspnea. Chest pain. COMPARISON STUDY: 09/19/2018 FINDINGS: The bones soft tissues and hemidiaphragms are normal. The cardiomediastinal silhouette is n ormal. The lungs are clear. The pulmonary vasculature is normal. IMPRESSION: Negative chest. ACT 112: Negative or not required by law. The above report was generated using voice recognition software. It may contain grammatical, syntax or spelling errors. Electronically signed by: Martin Bass M.D. 11/10/2019 10:40 PM
[2019-11-10] MEDS ORDERED: LACTATED RINGER'S 1,000 ML IV ONE (23:02)
[2019-11-10 23:19] LABS: Appearance Urine Clear (Clear); Bilirubin Urine Negative (Negative); Blood Urine Negative (Negative); Color Urine Yellow; Glucose Urine UA Negative (Negative); Ketones Urine Negative (Negative); Leukocyte Esterase Urine Negative (Negative); Nitrite Urine Negative (Negative); Protein Urine Negative (Negative); Specific Gravity Urine 1.009 (1.000-1.030); Urobilinogen Urine Negative (Negative)
--- NOTE | 2019-11-10 23:28 | History & Physical Report ---
Date of Service November 10, 2019 Assessment & Plan (1) Facial swelling: Plus urticarial rash ? ACEI induced angioedema Some improvement after initial intervention at the ER HTN, slightly elevated Hyperglycemia secondary to steroid administration rule out DM OBS Medical telemetry Prudent to DC patient's BOYD inhibitor and to add medication to allergy/ADR list. Titrate Norvasc if BP uncontrolled May benefit from outpatient allergy consultation. Check hemoglobin A1c. DVT prophylaxis. Lovenox subcu Full code Text document was generated using [employer] voice recognition software. It may contain grammatical or spelling errors. Kindly contact undersigned for clarification of any documentation item in question. History of Present Illness Cholecystectomy cholecystectomy Chief Complaint: Worsening head/eye swelling Primary Care Provider: Jhoan Mayen MD History obtained from patient and records. Medical history significant for hypertension, WILFRED as per records, sarcoid as per records, past tobacco abuse. Recent confinement September 2018 for acute cholecystitis status post surgery. This morning, patient woke up with a pruritic rash and some swelling on her head which progressively worsened and subsequently involving both eyelids throughout the day. No tongue swelling, no chest pain, no cough. Little short of breath. Low-grade fever last night. No known recent sick contacts. No new medications. Patient's recently bought a hazelnut creamer. Patient has consumed hazelnuts without problems in the past. PCP prescribed outpatient prednisone course and Benadryl as needed. Requested to go to clinic for outpatient COVID testing found to be negative. Patient consulted the ER for worsening symptoms. At the ER, patient received Benadryl, Pepcid, Solu-Medrol, and 2 units FFP for possible ACEI induced angioedema. Facial swelling currently improved as per patient. Medical History as above Surgical History : Cholecystectomy, section, tympanostomy tube placement Family History : Breast cancer, renal cancer, ovarian cancer Personal/Social history : Past tobacco abuse, occasional EtOH intake, [employer] employee Allergies Allergy/AdvReac Type Severity Reaction Status Date / Time lisinopril Allergy Severe poss Verified 11/10/19 23:32 angioedema lidocaine Allergy Unknown Unknown Verified 11/10/19 20:27 procaine Allergy Unknown Unknown Verified 11/10/19 20:27 Home Medications Home Medications Medication Instructions Recorded Confirmed Type Benefiber Clear SF (dextrin) 1.5 g PO BID 09/19/18 11/10/19 History Mirena 20 mcg INTRAUTERINE DIRECTED 09/19/18 11/10/19 History cholecalciferol (vitamin D3) 1,000 unit PO DAILY 09/19/18 11/10/19 History lisinopril-hydrochlorothiazide 1 tab PO DAILY 09/19/18 11/10/19 History loratadine [Claritin] 10 mg PO DAILY PRN 09/19/18 11/10/19 History multivitamin 1 tab PO DAILY 09/19/18 11/10/19 History amlodipine [Norvasc] 5 mg PO DAILY #30 tab 09/23/18 11/10/19 Rx Past Med/Surg History Medical History GERD (gastroesophageal reflux disease) HTN (hypertension) IUD (intrauterine device) in place mirena BRYSON (nonalcoholic steatohepatitis) Seasonal allergies Surgical History History of ear, nose, and throat (ENT) surgery Previous section S/P ERCP Family History Grandmother (Maternal) Cholecystitis Mother T2DM (type 2 diabetes mellitus) Ovarian cancer Father Kidney malignancy Social History Preferred Language: Lithuanian Communication Ability: Effective Spot Worker Required: No Beliefs That Will Affect Care: None marital status: Current Living Situation: Spouse Other Information That Helps Us Care for You: No Feels Safe at Home: Yes Safety Concerns: Feels Safe At This Time Smoking Status: Former smoker Tobacco Type: cigarettes ; Cigarettes Per Day: 1 PPD x 15 years, Quit 2009 ; Do You Dip or Chew Tobacco: No ; Number of Years Since Quit: 8 ; Second Hand Exposure: No ; Tobacco Cessation Education Requested by Patient: No Hx Alcohol Use: Yes Alcohol type: wine Hx Substance Use: No Review of Systems Review of Systems: As per HPI, all 10 systems reviewed, all other ROS negative Physical Exam Physical Exam: GENERAL: Comfortable, obese, pleasant, no respiratory distress SKIN: Normal color, warm HEENT: Marked facial swelling, bilateral periorbital edema, pink palpebral conjunctivae, dry buccal mucosa NECK : Supple, short neck, no tenderness CHEST : CTA, no tenderness HEART : RRR, no obvious murmurs ABDOMEN: Some distention, nontender EXTREMITIES : No LE swelling/tenderness, no other conspicuous deformities noted NEUROLOGIC : Coherent, no facial asymmetry, no other gross focality Results & Data Results & Data ([facility]) Vital Signs (Past 12 Hours) Vital Signs Temp Pulse Resp BP Pulse Ox 11/10/19 23:08 84 20 135/86 95 11/10/19 22:45 136/88 95 11/10/19 22:40 134/87 95 11/10/19 22:35 133/85 95 11/10/19 22:30 37.0 C 82 20 129/88 95 11/10/19 22:25 82 16 143/86 H 95 11/10/19 22:20 82 18 132/93 94 11/10/19 22:15 37.4 C 80 19 124/96 94 11/10/19 22:11 80 20 126/85 93 11/10/19 22:10 37.3 C 81 17 126/85 95 11/10/19 22:05 37.3 C 78 20 130/101 H 94 11/10/19 22:02 82 20 135/102 H 95 11/10/19 21:58 37.1 C 87 18 135/102 H 94 11/10/19 20:38 97 11/10/19 20:01 36.7 C 93 H 20 140/92 93 Laboratory Results Laboratory Results WBC 7.92 K/uL (4.8-10.8) 11/10/19 20:10 RBC 4.98 M/uL (4.2-5.4) 11/10/19 20:10 Hgb 15.6 g/dL (12.0-16.0) 11/10/19 20:10 Hct 44.8 % (37-47) 11/10/19 20:10 MCV 90.0 fL (80-100) 11/10/19 20:10 MCH 31.3 pg (25-34) 11/10/19 20:10 MCHC 34.8 g/dL (32-36) 11/10/19 20:10 RDW Std Deviation 40.6 fL (36.4-46.3) 11/10/19 20:10 RDW Coeff of Kecia 12.4 % (11.5-14.5) 11/10/19 20:10 Plt Count 216 K/uL (130-400) 11/10/19 20:10 MPV 10.4 fL (7.4-10.4) 11/10/19 20:10 Immature Gran % (Auto) 0.3 % 11/10/19 20:10 Neut % (Auto) 82.6 % 11/10/19 20:10 Lymph % (Auto) 11.0 % 11/10/19 20:10 [place] % (Auto) 3.7 % 11/10/19 20:10 Eos % (Auto) 2.1 % 11/10/19 20:10 Baso % (Auto) 0.3 % 11/10/19 20:10 Immature Gran # (Auto) 0.02 K/uL (0.00-0.02) 11/10/19 20:10 Neut # (Auto) 6.55 K/uL (1.4-6.5) H 11/10/19 20:10 Lymph # (Auto) 0.87 K/uL (1.2-3.4) L 11/10/19 20:10 [place] # (Auto) 0.29 K/uL (0.11-0.59) 11/10/19 20:10 Eos # (Auto) 0.17 K/uL (0-0.5) 11/10/19 20:10 Baso # (Auto) 0.02 K/uL (0-0.2) 11/10/19 20:10 PT 11.0 Seconds (9.0-12.0) 11/10/19 20:10 INR 1.0 (0.9-1.1) 11/10/19 20:10 APTT 28.5 Seconds (21.0-31.0) 11/10/19 20:10 PTT Ratio 1.0 11/10/19 20:10 Sodium 139 mmol/L (136-145) 11/10/19 20:10 Potassium 3.8 mmol/L (3.5-5.1) 11/10/19 20:10 Chloride 105 mmol/L (98-107) 11/10/19 20:10 Carbon Dioxide 27 mmol/L (21-32) 11/10/19 20:10 Anion Gap 7.0 (3-11) 11/10/19 20:10 BUN 14 mg/dl (7-18) 11/10/19 20:10 Creatinine 0.88 mg/dl (0.6-1.2) 11/10/19 20:10 Est Cr Clr Drug Dosing 87.6 ml/min 11/10/19 20:10 Est GFR ( Amer) 90.7 11/10/19 20:10 Est GFR (Non-Af Amer) 78.2 11/10/19 20:10 BUN/Creatinine Ratio 16.2 (10-20) 11/10/19 20:10 Glucose 158 mg/dl (70-99) H 11/10/19 20:10 Calcium 10.2 mg/dl (8.5-10.1) H 11/10/19 20:10 Total Bilirubin 0.6 mg/dl (0.2-1) 11/10/19 20:10 AST 34 U/L (15-37) 11/10/19 20:10 ALT 87 U/L (12-78) H 11/10/19 20:10 Alkaline Phosphatase 78 U/L (45-117) 11/10/19 20:10 Total Protein 8.1 gm/dl (6.4-8.2) 11/10/19 20:10 Albumin 4.0 gm/dl (3.4-5.0) 11/10/19 20:10 Globulin 4.1 gm/dl (2.5-4.0) H 11/10/19 20:10 Albumin/Globulin Ratio 1.0 (0.9-2) 11/10/19 20:10 Urine Color Yellow 11/10/19 23:05 Urine Appearance Clear (Clear) 11/10/19 23: Urine pH 7.0 (4.5-7.5) 11/10/19 23:05 Ur Specific [place] 1.009 (1.000-1.030) 11/10/19 23:05 Urine Protein Negative (Negative) 11/10/19 23:05 Urine Glucose (UA) Negative (Negative) 11/10/19 23: Urine Ketones Negative (Negative) 11/10/19 23:05 Urine Blood Negative (Negative) 11/10/19 23:05 Urine Nitrite Negative (Negative) 11/10/19 23: Urine Bilirubin Negative (Negative) 11/10/19 23: Urine Urobilinogen Negative (Negative) 11/10/19 23:05 Ur Leukocyte Esterase Negative (Negative) 11/10/19 23:05 Influenza Type A (PCR) Neg for Influ A (Neg) 11/10/19 20:50 Influenza Type B (PCR) Neg for Influ B (Neg) 11/10/19 20:50 Diagnostic Findings Chest x-ray : Negative chest.
[2019-11-10 23:47] LABS: Magnesium 2.2 mg/dl (1.8-2.4); Thyroid Stimulating Hormone 1.73 uIu/ml (0.300-4.500)
[2019-11-11] MEDS ORDERED: PROMETHAZINE HCL 12.5 MG in SODIUM CHLORIDE 0.9% 50 ML IV PRN (00:30)
[2019-11-11] MEDS ORDERED: TRAMADOL HCL 50 MG TABLET PO PRN (00:30)
[2019-11-11] MEDS ORDERED: DiphenhydrAMINE HCL 50 MG/ML VIAL IV PRN (00:30)
[2019-11-11] MEDS ORDERED: ACETAMINOPHEN 325 MG TAB PO PRN (00:30)
[2019-11-11 00:39] LABS: Pregnancy Test, Urine Negative (Negative)
[2019-11-11 05:43] LABS: Estimated Average Glucose 117 mg/dl; Hemoglobin A1C 5.7 % (4.5-5.6)
[2019-11-11 06:37] LABS: Basophils # (auto) 0.01 K/uL (0-0.2); Basophils % (auto) 0.2 %; Eosinophils # (auto) 0.01 K/uL (0-0.5); Eosinophils % (auto) 0.2 %; Hematocrit (blood only) 42.6 % (37-47); Hemoglobin 14.7 g/dL (12.0-16.0); Immature Granulocytes # (auto) 0.01 K/uL (0.00-0.02); Immature Granulocytes % (auto) 0.2 %; Lymphocytes # (auto) 0.68 K/uL (1.2-3.4); Lymphocytes % (auto) 10.9 %; Mean Corpuscular Hemoglobin 30.8 pg (25-34); Mean Corpuscular Hgb Conc 34.5 g/dL (32-36); Mean Corpuscular Volume 89.3 fL (80-100); Monocytes # (auto) 0.02 K/uL (0.11-0.59); Monocytes % (auto) 0.3 %; Neutrophils # (auto) 5.53 K/uL (1.4-6.5); Neutrophils % (auto) 88.2 %; Platelet Count 211 K/uL (130-400); RDW Coefficient of Variation 12.2 % (11.5-14.5); RDW Standard Deviation 39.6 fL (36.4-46.3); Red Blood Count 4.77 M/uL (4.2-5.4); White Blood Count 6.26 K/uL (4.8-10.8)
--- NOTE | 2019-11-11 08:38 | Discharge Summary ---
Date of Service November 11, 2019 Admission HPI Per Admitting Provider History obtained from patient and records. Medical history significant for hypertension, WILFRED as per records, sarcoid as per records, past tobacco abuse. Recent confinement September 2018 for acute cholecystitis status post surgery. This morning, patient woke up with a pruritic rash and some swelling on her head which progressively worsened and subsequently involving both eyelids throughout the day. No tongue swelling, no chest pain, no cough. Little short of breath. Low-grade fever last night. No known recent sick contacts. No new medications. Patient's recently bought a hazelnut creamer. Patient has consumed hazelnuts without problems in the past. PCP prescribed outpatient prednisone course and Benadryl as needed. Requested to go to clinic for outpatient COVID testing found to be negative. Patient consulted the ER for worsening symptoms. At the ER, patient received Benadryl, Pepcid, Solu-Medrol, and 2 units FFP for possible ACEI induced angioedema. Facial swelling currently improved as per patient. Admission Exam Per Admitting Provider GENERAL: Comfortable, obese, pleasant, no respiratory distress SKIN: Normal color, warm HEENT: Marked facial swelling, bilateral periorbital edema, pink palpebral conjunctivae, dry buccal mucosa NECK : Supple, short neck, no tenderness CHEST : CTA, no tenderness HEART : RRR, no obvious murmurs ABDOMEN: Some distention, nontender EXTREMITIES : No LE swelling/tenderness, no other conspicuous deformities noted NEUROLOGIC : Coherent, no facial asymmetry, no other gross focality Principal Diagnosis Angioedema WILFRED HTN GERD BRYSON Discharge Exam Physical Exam Gen-AAO x 3, NAD, Afebrile Head-NCAT, EOMI, PERRLA, Anicteric Sclera, No Posterior Pharyngeal Erythema, Periorbital edema B/L Neck-Supple, No JVD, No Thyromegaly, No Masses, No LAD, No Bruits Lungs-Clear to Auscultation Bilaterally, No Rales, No Rhonchi, No Wheezing, No Crepitus Chest-No S4, +S1, +S2, No S3, No Murmurs, No Rubs, No Gallops, No Ectopy Abdomen-Soft, Bowel Sounds Present, Non Tender, Non Distended, No Hepatomegaly, No Splenomegaly, No Palpable Masses, No Rebound, No Rigidity, No Guarding Musculoskeletal-Full Range of Motion Bilaterally, No CVAT Extremities-No Cyanosis, No Clubbing, No Edema Nuero-Cranial Nerves II-XII grossly intact, Motor WNL, DTRs WNL, Strength WNL, Non Focal Psych-Normal Mood Discharge Data Allergies Allergy/AdvReac Type Severity Reaction Status Date / Time lisinopril Allergy Severe poss Verified 11/10/19 23:32 angioedema lidocaine Allergy Unknown Unknown Verified 11/10/19 20:27 procaine Allergy Unknown Unknown Verified 11/10/19 20:27 Consultations 11/10/19 22:52 ED Decision to Admit Stat Current Diagnoses Localized swelling, mass and lump, head (11/10/19) Allergies lisinopril Allergy (Severe, Verified 11/10/19 23:32) poss angioedema lidocaine Allergy (Unknown, Verified 11/10/19 20:27) Unknown procaine Allergy (Unknown, Verified 11/10/19 20:27) Unknown Height/Weight/Isolation Height 5 ft 2 in Weight 99.7 kg Chemistry 11/10/19 20:10 Sodium 139 Potassium 3.8 Chloride 105 Carbon Dioxide 27 Anion Gap 7.0 BUN 14 Creatinine 0.88 Glucose 158 H Urinalysis 11/10/19 23:05 Urine Color Yellow Urine Appearance Clear Urine pH 7.0 Ur Specific Arnold 1.009 Urine Protein Negative Urine Glucose (UA) Negative Urine Ketones Negative Urine Blood Negative Urine Nitrite Negative Urine Bilirubin Negative Microbiology 11/10/19 20:52 Blood Aerobic Blood Culture - Pending 11/10/19 20:52 Blood Anaerobic Blood Culture - Pending 11/10/19 20:52 Blood Aerobic Blood Culture - Pending 11/10/19 20:52 Blood Anaerobic Blood Culture - Pending Hospital Course (1) Facial swelling: Plus urticarial rash ? ACEI induced angioedema Some improvement after initial intervention at the ER HTN, slightly elevated Hyperglycemia secondary to steroid administration rule out DM DC today and F/U c Dr Mayen to add ARB or another suitable agent Titrate Norvasc if BP uncontrolled Total Time Total Time Spent Total Time Spent (In Minutes): 45 mins Total Time Includes: Examination of the Patient, Discharge Planning and Medication Reconciliation Discharge Plan Discharge Items Patient Disposition: Home - Self-Care Reason For Visit: SOB Discharge Diagnosis: Angioedema WILFRED HTN GERD BRYSON Condition on Discharge: Good Activity: Resume your previous activity Lifting: Gradually increase as tolerated Bathing: No limitations Sexual Activity: When tolerated Exercise/Sports: Gradually increase as tolerated Driving/Machine Use: No limitations Weightbearing: Full weightbearing Non-emergency contact: Primary Care Provider Call non-emergency contact if: you have any medication questions and your symptoms worsen Follow-up/Referrals: Jhoan Mayen MD [Primary Care Provider] - Diet: Regular Addtl Attending Provider Instructions: Follow up in PCP Office or with a phone call. Pending Studies at Discharge: No Stand-Alone Forms: My [facility] [place], Smoking Cessation Medications and DC Order Prescriptions: New prednisone 20 mg Tablet 40 mg PO DAILY Qty: 5 RF: 0 hydrochlorothiazide 25 mg tablet 25 mg PO DAILY Qty: 30 RF: 0 Continued multivitamin Tablet 1 tab PO DAILY RF: 0 Mirena 20 mcg/24 hours (5 yrs) 52 mg Intrauterine Device 20 mcg INTRAUTERINE DIRECTED RF: 0 loratadine [Claritin] 10 mg Tablet 10 mg PO DAILY PRN (Reason: Allergy Symptoms) RF: 0 cholecalciferol (vitamin D3) 1,000 unit Tablet 1,000 unit PO DAILY RF: 0 Benefiber Clear SF (dextrin) 3 gram/3.5 gram Powder In Packet 1.5 g PO BID RF: 0 amlodipine [Norvasc] 5 mg tablet 5 mg PO DAILY Qty: 30 RF: 0 Discontinued lisinopril-hydrochlorothiazide 20-25 mg Tablet 1 tab PO DAILY RF: 0 Discharge Orders: Discharge Order (Routine); Ordered 11/11/19 Ordered By: Yoel Veronica Admission Data Admit Date/Time: 11/10/19 23:30 Attending Provider: Yoel Veronica Admit Provider: Willi Peck Primary Care Provider: Jhoan Mayen Other Providers: Willi Peck
[2019-11-11] MEDS ORDERED: PSYLLIUM 58.6% POWDER PACKET PO SCH (09:00)
[2019-11-11] MEDS ORDERED: LORATADINE 10 MG TAB PO SCH (09:00)
[2019-11-11] MEDS ORDERED: ENOXAPARIN INJ 40 MG/0.4 ML SYR SQ SCH (09:00)
[2019-11-11] MEDS ORDERED: AMLODIPINE BESYLATE 5 MG TAB PO SCH (09:00)
[2019-11-11] MEDS ORDERED: MULTIVITAMIN TAB PO SCH (09:00)
[2019-11-11] MEDS ORDERED: predniSONE 20 MG TAB PO SCH (09:00)
== END 2019-11-11 09:49 | disposition home or self-care (01) ==
LOC: 2W 19:58 → ED 19:58 → SUATTDRO 23:30 → 2W 11-11 00:35